=== PATIENT | female | born 1935 | race Caucasian/White ===

== ENCOUNTER 2017-01-21 17:40 | Emergency (ER) | payer OTHER ==
[~2017-01-21 17:40] MED LIST: ASPI81TA21 PO; CIPR-255 PO; HYDR500C PO; HYDR500C3 PO; IBUP-103 PO; LEVO25TA5 PO; LORA-741 PO; MULT-506 PO; [UNRECOGNIZED DRUG - CODE] PO
[2017-01-21 17:48] VITALS: TEMP 36.6; Ht 157.5 cm
--- NOTE | 2017-01-21 18:51 | EMERGENCY ROOM VISIT NOTE ---
History Report prepared by Dena: Leighann Marin Under the Supervision of: Dr. Zenobia Cabral M.D. First contact with patient: 18:04 Chief Complaint: SWELLING TO EXTREMITY Stated Complaint: SWOLLEN LEGS ANKLES FEET History of Present Illness The patient is an 81 year old female who presents to the Emergency Room with complaints of worsening edema to the bilateral legs worsening 1 weeks [employer]DING [employer]. The patient states that her legs are currently in pain. The patient's daughter states that the patient has fibromyalgia and has been complaining of knee pain and they made an appointment to see the patient's orthopedist. The daughter states that she left her mother with a sibling over the weekend and when she returned the patient had worsened edema in both legs.The patient denies any new shortness of breath, or chest pain. The patient's daughter states that the patient has history of a heart aneurysm that is monitored by her PCP and hemochromatosis. She states the patient only takes hydroxyurea and baby aspirin daily. She denies any history of CHF. She states that the patient is sensitive to cleaning products, and has been using monostat cream for vaginal dryness but states that she has been using it for months and is unsure if it is causing a prolonged reaction. 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 Review of Systems See HPI for pertinent positives & negatives. A total of 10 systems reviewed and were otherwise negative. Past Medical & Surgical Medical Problems: (1) Anemia Of Other Chronic Disease (2) Anxiety State Nos (3) Aortic Aneurysm Nos (4) Asthma, Unspecified (5) Hyperlipidemia Nec/Nos (6) Hypertension Nos (7) Insomnia, Unspecified (8) Pruritic Disorder Nos (9) Pulmonary Collapse Family History Patient reports no known family medical history. Social History Smoking Status: Never Smoker Marital Status: Housing Status: lives with significant other Occupation Status: retired Current/Historical Medications Scheduled Aspirin Enteric Coated (Ecotrin Or Generic), 81 MG PO DAILY Cholecalciferol (Vitamin D3), 5,000 UNITS PO DAILY Furosemide (Lasix), 40 MG PO QAM Hydroxyurea (Hydrea), 500 MG PO DAILY Hydroxyurea (Hydrea Cap), 1,000 MG PO DAILY Multivitamin (Multivitamin), 1 TAB PO DAILY Scheduled PRN Ibuprofen Tab (Advil), 200-600 MG PO Q8 PRN for Pain Allergies Coded Allergies: Clonidine (Verified Allergy, Intermediate, RASH, 01/21/17) Cyclobenzaprine (Verified Allergy, Intermediate, RASH, 01/21/17) Diltiazem (Verified Allergy, Intermediate, RASH, 01/21/17) Homatropine (Verified Allergy, Intermediate, SWELLING, 01/21/17) Hydrocodone (Verified Allergy, Intermediate, SWELLING, 01/21/17) Lisinopril (Verified Allergy, Intermediate, RASH, 01/21/17) Nitrofurantoin (Verified Allergy, Intermediate, RASH, 01/21/17) Penicillins (Verified Allergy, Intermediate, HIVES/RASH, 01/21/17) Pregabalin (Verified Allergy, Intermediate, tingly tongue, numb lips, ) Quinapril (Verified Allergy, Intermediate, RASH, 01/21/17) Quinolones (Verified Allergy, Intermediate, SWELLING, 01/21/17) Amitriptyline (Verified Adverse Reaction, Mild, OPPOSITE EFFECTS, 01/21/17) Uncoded Allergies: ANTICHOLINERGIC (Allergy, Intermediate, SWELLING, 10/28/09) Physical Exam Vital Signs Date Time Temp Pulse Resp B/P Pulse Ox O2 Delivery O2 Flow Rate FiO2 01/21/17 20:15 82 20 190/93 94 Room Air 01/21/17 17:48 36.6 92 18 158/70 92 Room Air Physical Exam Vital signs reviewed. General: Well-appearing female, in no significant distress. HEENT: No scleral icterus, PERRLA, neck supple. Atraumatic. Cardiovascular: Regular rate and rhythm, no extra sounds. Pulmonary: Clear to auscultation bilaterally, normal work of breathing. Abdomen: Obese, soft, nontender, nondistended, positive bowel sounds. Musculoskeletal: Non pitting peripheral edema bilaterally, no tenderness to palpation, no evidence of cellulitis Neurologic: Patient awake alert and oriented x 3, full strength in all 4 extremities. Cranial nerves 2 through 12 grossly intact. Skin: Warm, dry, no rash Medical Decision & Procedures ER Provider Diagnostic Interpretation: US results as stated below per my review and radiologist interpretation: ULTRASOUND BILATERAL LOWER EXTREMITY VENOUS CLINICAL HISTORY: Lower extremity edema. COMPARISON STUDY: No priors. TECHNIQUE: Real-time, grayscale, and color Doppler sonography of the deep veins of the right and left lower extremity was performed from the inguinal crease to the calf. Compression and augmentation were utilized. FINDINGS: There is no sonographic evidence of deep venous thrombosis identified in the right or left lower extremity. The common femoral, superficial femoral, and popliteal veins are patent and normally compressible bilaterally. The greater saphenous vein and the profunda femoris vein at the junction with the common femoral vein are clear in both legs. The visualized calf veins are patent bilaterally. IMPRESSION: There is no sonographic evidence of deep venous thrombosis identified in the right or left lower extremity. Electronically signed by: Zeeshan Light M.D. 01/21/2017 7:26 PM Dictated Date/Time: 01/21/2017 7:26 PM Laboratory Results 01/21/17 18:32 Red Blood Count 4.08, Mean Corpuscular Volume 103.9, Mean Corpuscular Hemoglobin 33.3, Mean Corpuscular Hemoglobin Concent 32.1, Mean Platelet Volume 10.7, Neutrophils (%) (Auto) 61.5, Lymphocytes (%) (Auto) 28.2, Monocytes (%) ( Auto) 8.6, Eosinophils (%) (Auto) 1.4, Basophils (%) (Auto) 0.2, Neutrophils # ( Auto) 5.28, Lymphocytes # (Auto) 2.42, Monocytes # (Auto) 0.74, Eosinophils # ( Auto) 0.12, Basophils # (Auto) 0.02 01/21/17 18:32 Test 01/21/17 18:32 01/21/17 18:36 White Blood Count 8.59 K/uL (4.8-10.8) Red Blood Count 4.08 M/uL (4.2-5.4) Hemoglobin 13.6 g/dL (12.0-16.0) Hematocrit 42.4 % (37-47) Mean Corpuscular Volume 103.9 fL (80-100) Mean Corpuscular Hemoglobin 33.3 pg (25-34) Mean Corpuscular Hemoglobin Concent 32.1 g/dl (32-36) Platelet Count 367 K/uL (130-400) Mean Platelet Volume 10.7 fL (7.4-10.4) Neutrophils (%) (Auto) 61.5 % Lymphocytes (%) (Auto) 28.2 % Monocytes (%) (Auto) 8.6 % Eosinophils (%) (Auto) 1.4 % Basophils (%) (Auto) 0.2 % Neutrophils # (Auto) 5.28 K/uL (1.4-6.5) Lymphocytes # (Auto) 2.42 K/uL (1.2-3.4) Monocytes # (Auto) 0.74 K/uL (0.11-0.59) Eosinophils # (Auto) 0.12 K/uL (0-0.5) Basophils # (Auto) 0.02 K/uL (0-0.2) RDW Standard Deviation 54.8 fL (36.4-46.3) RDW Coefficient of Variation 14.4 % (11.5-14.5) Immature Granulocyte % (Auto) 0.1 % Immature Granulocyte # (Auto) 0.01 K/uL (0.00-0.02) Anion Gap 9.0 mmol/L (3-11) Estimated GFR () 44.2 Estimated GFR (Non- 38.2 BUN/Creatinine Ratio 12.4 (10-20) Calcium Level 8.8 mg/dl (8.5-10.1) Magnesium Level 2.2 mg/dl (1.8-2.4) Total Bilirubin 0.3 mg/dl (0.2-1) Direct Bilirubin 0.1 mg/dl (0-0.2) Aspartate Amino Transf (AST/SGOT) 17 U/L (15-37) Alanine Aminotransferase (ALT/SGPT) 26 U/L (12-78) Alkaline Phosphatase 58 U/L (45-117) Total Creatine Kinase 50 U/L (26-192) Creatine Kinase MB < 0.5 ng/ml (0.5-3.6) Creatine Kinase MB Ratio (0-3.0) Total Protein 7.1 gm/dl (6.4-8.2) Albumin 3.6 gm/dl (3.4-5.0) GF-Pwk-V-Type Natriuretic Peptide 181 pg/ml (0-1800) Laboratory results per my review. Medications Administered Medications (Trade) Dose Ordered Sig/Demario Route Start Time Stop Time Status Last Admin Dose Admin Furosemide (Lasix Inj) 40 mg NOW STAT IV 01/21/17 19:40 01/21/17 19:41 DC 01/21/17 19:49 40 MG ECG Indication: other (edema) Rate (beats per minute): 82 Rhythm: normal sinus Findings: no acute ischemic change, no ectopy ED Course 1814: Past medical records reviewed. The patient was evaluated in room B12B. A complete history and physical examination was performed. 1934: I reevaluated the patient and she was resting comfortably. 1939: Ordered Lasix Inj 40 mg IV. 1955: Upon reevaluation, the patient appeared to have improvement of her symptoms. I discussed findings with the patient and her daughter. They verbalized agreement of the treatment plan. The patient was discharged home. Medical Decision The patient is a 81 year old female who presents to the ED with complaints of worsening edema. Differentials include DVT, musculoskeletal, infection, joint effusion, trauma, lymphedema, idiopathic, CHF, as well as others were entertained.. This pt was evaluated and appeared to be in no distress. IV access was obtained and lab work was drawn. US of BLE were performed and are negative for DVT. Lab work reveals no significant abnl, except for a creat of 1.3. This is slightly higher than baseline. Pt was given a dose of lasix 40 mg IV. She was d/c with a 7 day course of lasix 40 mg po. She will f/u with PCP this week and return to the ED for worsening of symptoms or any medical concerns. Impression Primary Impression: Bilateral lower extremity edema Scribe Attestation The scribe's documentation has been prepared under my direction and personally reviewed by me in its entirety. I confirm that the note above accurately reflects all work, treatment, procedures, and medical decision making performed by me. Departure Information Dispostion Home / Self-Care Prescriptions Furosemide (Lasix) 40 Mg Tab 40 MG PO QAM, #7 TAB Prov: Zenobia Cabral M.D. 01/21/17 Referrals RV. Jansen MD (PCP) Patient Instructions My [facility] Additional Instructions Diagnosis: Dependent lower extremities edema Lasix 40 mg daily in the morning. Follow a low-sodium diet. Wear compression stockings, you may remove them at night. Follow-up with your physician this week. Elevate your legs as much as possible. Return to the ER for worsening of symptoms or any medical concerns.
[2017-01-21 19:12] LABS: BASO % 0.2 %; BASO ABS # 0.02 K/uL (0-0.2); COMPLETE YES; EOS % 1.4 %; HEMATOCRIT 42.4 % (37-47); IG% 0.1 %; LYMPH % 28.2 %; LYMPH ABS # 2.42 K/uL (1.2-3.4); MEAN CELL VOLUME 103.9 fL (80-100); MEAN CORPUSCULAR HEMOGLOBIN 33.3 pg (25-34); MEAN CORPUSCULAR HGB CONC 32.1 g/dl (32-36); MEAN PLATELET VOLUME 10.7 fL (7.4-10.4); MONO % 8.6 %; NEUT % 61.5 %; PLATELET COUNT 367 K/uL (130-400); RED BLOOD COUNT 4.08 M/uL (4.2-5.4); WHITE BLOOD COUNT 8.59 K/uL (4.8-10.8)
[2017-01-21 19:24] LABS: ALT/SGPT 26 U/L (12-78); AST/SGOT 17 U/L (15-37); BLOOD UREA NITROGEN 16 mg/dl (7-18); BUN/CREATININE RATIO 12.4 (10-20); CALCIUM 8.8 mg/dl (8.5-10.1); CARBON DIOXIDE 28 mmol/L (21-32); CHLORIDE 106 mmol/L (98-107); GLUCOSE 95 mg/dl (70-99); MAGNESIUM 2.2 mg/dl (1.8-2.4); SODIUM 143 mmol/L (136-145)
--- NOTE | 2017-01-21 19:28 | DIAGNOSTIC IMAGING REPORT ---
ULTRASOUND BILATERAL LOWER EXTREMITY VENOUS CLINICAL HISTORY: Lower extremity edema. COMPARISON STUDY: No priors. TECHNIQUE: Real-time, grayscale, and color Doppler sonography of the deep veins of the right and left lower extremity was performed from the inguinal crease to the calf. Compression and augmentation were utilized. FINDINGS: There is no sonographic evidence of deep venous thrombosis identified in the right or left lower extremity. The common femoral, superficial femoral, and popliteal veins are patent and normally compressible bilaterally. The greater saphenous vein and the profunda femoris vein at the junction with the common femoral vein are clear in both legs. The visualized calf veins are patent bilaterally. IMPRESSION: There is no sonographic evidence of deep venous thrombosis identified in the right or left lower extremity. Electronically signed by: Zeeshan Light M.D. 01/21/2017 7:26 PM Dictated Date/Time: 01/21/2017 7:26 PM
[2017-01-21 19:29] LABS: ALKALINE PHOSPHATASE 58 U/L (45-117)
[2017-01-21] MEDS ORDERED: FUROSEMIDE 40 MG/4 ML VIAL IV STA (19:40)
[2017-01-21] MEDS ORDERED: CHOLCAP5 PO (20:10)
[2017-01-21] MEDS ORDERED: LSX/40 PO ×2 (20:12→20:13)
[2017-01-21 20:15] VITALS: BP 190/93; PULSE 82; O2SAT 94
== END 2017-01-21 20:30 | disposition home or self-care (01) ==
LOC: C.EDB 17:41
DX: R60.0 Localized edema (principal); M79.7 Fibromyalgia; Z79.82 Long term (current) use of aspirin; D63.8 Anemia in other chronic diseases classified elsewhere; F41.9 Anxiety disorder, unspecified; J45.909 Unspecified asthma, uncomplicated; I10 Essential (primary) hypertension; E78.5 Hyperlipidemia, unspecified; I71.9 Aortic aneurysm of unspecified site, without rupture; Z79.899 Other long term (current) drug therapy; E66.9 Obesity, unspecified

== ENCOUNTER 2017-03-07 13:51 | Emergency (ER) | payer OTHER ==
[~2017-03-07] VITALS: Ht 160 cm; Wt 96.2 kg
[~2017-03-07 13:51] MED LIST changes: +CHOLCAP5 PO; -CIPR-255 PO; -LEVO25TA5 PO; -LORA-741 PO; +LSX/40 PO; -[UNRECOGNIZED DRUG - CODE] PO
[2017-03-07 14:00] VITALS: TEMP 36.9; Ht 160 cm; Wt 96.2 kg
--- NOTE | 2017-03-07 14:19 | EMERGENCY ROOM VISIT NOTE ---
History First contact with patient: 14:04 Chief Complaint: RASH Stated Complaint: RASH/ SHINGLES History of Present Illness The patient is a 81 year old female who presents to the Emergency Room with complaints of posterior upper back pain. The patient states she has had pain for several days. She states that it seems slightly itchy. She states it is not significantly painful. She denies any pain in her chest or trouble breathing. She denies abdominal pain, nausea or vomiting. She denies any falls or injuries. Review of Systems A 10 system review of systems was completed with positives and pertinent negatives listed in the HPI. Past Medical/Surgical History Medical Problems: (1) Anemia Of Other Chronic Disease (2) Anxiety State Nos (3) Aortic Aneurysm Nos (4) Asthma, Unspecified (5) Hyperlipidemia Nec/Nos (6) Hypertension Nos (7) Insomnia, Unspecified (8) Pruritic Disorder Nos (9) Pulmonary Collapse (10) Shingles Family History Patient reports no known family medical history. Social History Smoking Status: Never Smoker Marital Status: Housing Status: lives with significant other Occupation Status: retired Current/Historical Medications Scheduled Aspirin Enteric Coated (Ecotrin Or Generic), 81 MG PO DAILY Cholecalciferol (Vitamin D3), 5,000 UNITS PO DAILY Hydroxyurea (Hydrea), 500 MG PO DAILY Hydroxyurea (Hydrea Cap), 1,000 MG PO DAILY Multivitamin (Multivitamin), 1 TAB PO DAILY Valacyclovir Hcl (Valtrex), 1,000 MG PO BID Scheduled PRN Ibuprofen Tab (Advil), 200-600 MG PO Q8 PRN for Pain Lorazepam (Ativan), 0.5 MG PO Q6H PRN for Anxiety Meclizine Hcl (Meclizine Hcl), 25 MG PO TID PRN for Dizziness or Vertigo Allergies Coded Allergies: Clonidine (Verified Allergy, Intermediate, RASH, 03/07/17) Cyclobenzaprine (Verified Allergy, Intermediate, RASH, 03/07/17) Diltiazem (Verified Allergy, Intermediate, RASH, 03/07/17) Homatropine (Verified Allergy, Intermediate, SWELLING, 03/07/17) Hydrocodone (Verified Allergy, Intermediate, SWELLING, 03/07/17) Lisinopril (Verified Allergy, Intermediate, RASH, 03/07/17) Nitrofurantoin (Verified Allergy, Intermediate, RASH, 03/07/17) Penicillins (Verified Allergy, Intermediate, HIVES/RASH, 03/07/17) Pregabalin (Verified Allergy, Intermediate, tingly tongue, numb lips, 03/07) Quinapril (Verified Allergy, Intermediate, RASH, 03/07/17) Quinolones (Verified Allergy, Intermediate, SWELLING, 03/07/17) Amitriptyline (Verified Adverse Reaction, Mild, OPPOSITE EFFECTS, 03/07/17) Uncoded Allergies: ANTICHOLINERGIC (Allergy, Intermediate, SWELLING, 10/28/09) Physical Exam Vital Signs Date Time Temp Pulse Resp B/P (MAP) Pulse Ox O2 Delivery O2 Flow Rate FiO2 03/07/17 14:00 36.9 90 18 175/89 96 Room Air Physical Exam VITALS: Vitals are noted on the nurse's note and reviewed by myself. Vital signs stable. GENERAL: This is an 81-year-old female, in no acute distress, nondiaphoretic, well-developed well-nourished. SKIN: There is a vesicular, erythematous rash to the right upper posterior back that wraps around under the right breast, does not cross the midline and follows along a dermatome. There is no tenting of the skin. Capillary reflex less than 2 seconds. HEAD: Normocephalic atraumatic. EARS: The external ears are normal in appearance. EYES: Pupils equal round and reactive to light and accommodation. Conjunctivae without injection, sclerae without icterus. Extraocular movements intact. NOSE: Patent, turbinates without inflammation or discharge. MOUTH: Mucous membranes moist. Tonsils are not enlarged. Pharynx without erythema or exudate. Uvula midline. Airway patent. Tongue does not deviate. NECK: Supple without nuchal rigidity. HEART: Regular rate and rhythm without murmurs gallops or rubs. LUNGS: Clear to auscultation bilaterally without wheezes, rales or rhonchi. No retractions or accessory muscle use. ABDOMEN: Positive bowel sounds x 4. Soft, nontender, without masses or organomegaly. MUSCULOSKELETAL: No muscle atrophy, erythema, or edema noted. Full range of motion in all extremities. No tenderness to palpation. Normal gait. Strength 5/5 throughout. NEURO: Patient was alert and oriented to person place and time. No focal neurological deficits. Medical Decision & Procedures Medications Administered Medications (Trade) Dose Ordered Sig/Demario Route Start Time Stop Time Status Last Admin Dose Admin Valacyclovir HCl (Valtrex Tab) 1,000 mg NOW ONCE PO 03/07/17 14:45 03/07/17 14:46 DC 03/07/17 15:20 1,000 MG ED Course The patient was seen and examined. Previous visits were reviewed. The patient appears to have shingles. The rash is in the exact distribution of the patient' s pain. She has not had any chest pain or trouble breathing. She has not had any fevers. I reviewed laboratory studies from earlier last month. She will be given renal dosing of Valtrex, 1 g twice a day 7 days. She declined any pain medication. She should contact her family doctor to schedule a follow-up appointment for further evaluation and management. She should return to the ER with any worsening symptoms. The patient was also seen and examined by Dr. Almaguer who agrees with the assessment and treatment plan. Medical Decision The differential diagnosis includes cellulitis, candidiasis, shingles, among others Impression Primary Impression: Shingles Departure Information Dispostion Home / Self-Care Condition GOOD Prescriptions Valacyclovir Hcl (VALTREX) 1 Gm Tab 1000 MG PO BID for s for 7 Days, #14 TAB Prov: Rosmery Ocampo PA-C 03/07/17 Referrals RV. Jansen MD (PCP) Patient Instructions ED Shingles, My [facility] Additional Instructions Valtrex every 12 hours for 7 days Follow up with your family doctor next week for a recheck Return with any worsening symptoms Problem Qualifiers Primary Impression: Shingles Herpes zoster complications: without complications Qualified Codes: B02.9 - Zoster without complications
[2017-03-07] MEDS ORDERED: LORA-741 PO (14:22)
[2017-03-07] MEDS ORDERED: BNC/40 PO (14:22)
[2017-03-07] MEDS ORDERED: MECL1TAB42 PO (14:22)
--- NOTE | 2017-03-07 14:33 | EMERGENCY ROOM VISIT NOTE ---
ED Visit Note First contact with patient: 14:04 I have seen and examined this patient with Rosmery Ocampo and generally agree with the treatment plan as discussed. Current/Historical Medications Scheduled Aspirin Enteric Coated (Ecotrin Or Generic), 81 MG PO DAILY Cholecalciferol (Vitamin D3), 5,000 UNITS PO DAILY Hydroxyurea (Hydrea), 500 MG PO DAILY Hydroxyurea (Hydrea Cap), 1,000 MG PO DAILY Multivitamin (Multivitamin), 1 TAB PO DAILY Scheduled PRN Ibuprofen Tab (Advil), 200-600 MG PO Q8 PRN for Pain Lorazepam (Ativan), 0.5 MG PO Q6H PRN for Anxiety Meclizine Hcl (Meclizine Hcl), 25 MG PO TID PRN for Dizziness or Vertigo Allergies Coded Allergies: Clonidine (Verified Allergy, Intermediate, RASH, 03/07/17) Cyclobenzaprine (Verified Allergy, Intermediate, RASH, 03/07/17) Diltiazem (Verified Allergy, Intermediate, RASH, 03/07/17) Homatropine (Verified Allergy, Intermediate, SWELLING, 03/07/17) Hydrocodone (Verified Allergy, Intermediate, SWELLING, 03/07/17) Lisinopril (Verified Allergy, Intermediate, RASH, 03/07/17) Nitrofurantoin (Verified Allergy, Intermediate, RASH, 03/07/17) Penicillins (Verified Allergy, Intermediate, HIVES/RASH, 03/07/17) Pregabalin (Verified Allergy, Intermediate, tingly tongue, numb lips, 03/07) Quinapril (Verified Allergy, Intermediate, RASH, 03/07/17) Quinolones (Verified Allergy, Intermediate, SWELLING, 03/07/17) Amitriptyline (Verified Adverse Reaction, Mild, OPPOSITE EFFECTS, 03/07/17) Uncoded Allergies: ANTICHOLINERGIC (Allergy, Intermediate, SWELLING, 10/28/09) Vital Signs Date Time Temp Pulse Resp B/P (MAP) Pulse Ox O2 Delivery O2 Flow Rate FiO2 03/07/17 14:00 36.9 90 18 175/89 96 Room Air Departure Information Referrals RV. Jansen MD (PCP) Patient Instructions My [facility]
[2017-03-07] MEDS ORDERED: VALA1TAB2 PO (14:40)
[2017-03-07 15:50] VITALS: BP 171/79; PULSE 91; O2SAT 95
== END 2017-03-07 15:52 | disposition home or self-care (01) ==
LOC: EDBD 13:51 → C.EDC 13:51
DX: B02.9 Zoster without complications (principal); E78.5 Hyperlipidemia, unspecified; I10 Essential (primary) hypertension

== ENCOUNTER 2017-11-18 23:51 | Observation (INO) | payer OTHER ==
[~2017-11-18] VITALS: Ht 152.4 cm; Wt 96.9 kg
[~2017-11-18 23:51] MED LIST changes: +LORA-741 PO; -LSX/40 PO; +MECL1TAB42 PO
[2017-11-19] VITALS (8 sets, daily range): BP systolic 98–232; BP diastolic 53–91; PULSE 66–84; TEMP 36.5–37.2; O2SAT 94; Ht 152.4 cm; Wt 96.9 kg
[2017-11-19] MEDS ORDERED: SODIUM CHLORIDE 0.9% 1000ML 1,000 ML IV STA (00:29)
[2017-11-19] MEDS ORDERED: MoRPHine SULFATE 4 MG/ML 1 ML CARP\\VIAL IV STA (00:41)
[2017-11-19] MEDS ORDERED: ONDANSETRON INJ 2 MG/ML 2 ML VIAL IV STA ×2 (00:41→02:37)
[2017-11-19] MEDS ORDERED: SODIUM CHLORIDE 0.9% 500ML 500 ML IV STA (00:41)
[2017-11-19] MEDS ORDERED: FENTANYL CITRATE INJ 50 MCG/1 ML 2 ML VIAL IV STA ×3 (00:44→02:37)
[2017-11-19 00:48] LABS: BASO % 0.1 %; BASO ABS # 0.01 K/uL (0-0.2); EOS % 0.4 %; EOS ABS # 0.05 K/uL (0-0.5); HEMATOCRIT 41.5 % (37-47); HEMOGLOBIN 14.2 g/dL (12.0-16.0); IG# 0.03 K/uL (0.00-0.02); LYMPH % 20.4 %; LYMPH ABS # 2.44 K/uL (1.2-3.4); MEAN CELL VOLUME 104.3 fL (80-100); MEAN CORPUSCULAR HEMOGLOBIN 35.7 pg (25-34); MEAN CORPUSCULAR HGB CONC 34.2 g/dl (32-36); MEAN PLATELET VOLUME 10.9 fL (7.4-10.4); MONO % 7.3 %; MONO ABS # 0.87 K/uL (0.11-0.59); NEUT % 71.5 %; NEUT ABS # 8.58 K/uL (1.4-6.5); PLATELET COUNT 394 K/uL (130-400); RED CELL DISTRIBUTION WIDTH CV 13.9 % (11.5-14.5); RED CELL DISTRIBUTION WIDTH SD 52.5 fL (36.4-46.3); WHITE BLOOD COUNT 11.98 K/uL (4.8-10.8)
[2017-11-19 01:23] LABS: ALBUMIN 3.5 gm/dl (3.4-5.0); ALKALINE PHOSPHATASE 61 U/L (45-117); ALT/SGPT 23 U/L (12-78); BLOOD UREA NITROGEN 21 mg/dl (7-18); CARBON DIOXIDE 25 mmol/L (21-32); GLUCOSE 138 mg/dl (70-99); LIPASE 142 U/L (73-393); SODIUM 141 mmol/L (136-145); TOTAL PROTEIN 7.5 gm/dl (6.4-8.2)
[2017-11-19] MEDS ORDERED: GABA100C13 PO (01:26)
--- NOTE | 2017-11-19 01:26 | EMERGENCY ROOM VISIT NOTE ---
History Report prepared by Dena: Raul Roblero Under the Supervision of: Dr. Rodolfo Wheatley M.D. First contact with patient: 00:29 Chief Complaint: BACK PAIN Stated Complaint: LWR RT BACK PAIN,RT ABD PAIN,VOMITING,URINARY PAIN History of Present Illness The patient is an 82 year old female who presents to the Emergency Room with complaints of constant lower abdominal pain beginning 2 hours ago. Per daughter , the patient did not have any symptoms this morning. The patient also complains of dry heaving, nausea, lower back pain, and having to urinate. She states that although she feels as though she has to urinate, she is unable to. Per daughter, the patient is not one to typically have these symptoms, prompting her to take the patient to the emergency department tonight. She notes that she has a history of diverticulitis, cholecystectomy, appendectomy, and has had an ectopic . She rates her pain as an 8/10. Pt denies LOC, headache, fevers, chills, diaphoresis, visual changes, neck pain, chest pain, breathing difficulties, melena, hematochezia, numbness, weakness, lymphadenopathy, rash, or other complaints. Source of History: patient Onset: 2 hours ago Position: abdomen Symptom Intensity: 8/10 Timing: constant Associated Symptoms: + nausea, + back pain Note: The patient also complains of dry heaving, and having the feeling that she has to urinate despite not being able. Review of Systems See HPI for pertinent positives and negatives. A total of ten systems were reviewed and were otherwise negative. Past Medical & Surgical Medical Problems: (1) Anemia Of Other Chronic Disease (2) Anxiety State Nos (3) Aortic Aneurysm Nos (4) Asthma, Unspecified (5) Diverticulitis (6) Ectopic (7) Hyperlipidemia Nec/Nos (8) Hypertension Nos (9) Insomnia, Unspecified (10) Pruritic Disorder Nos (11) Pulmonary Collapse (12) Shingles Surgical Problems: (1) S/P appendectomy (2) S/P cholecystectomy Family History Patient reports no known family medical history. Social History Smoking Status: Never Smoker Marital Status: Housing Status: lives with significant other Occupation Status: retired Current/Historical Medications Scheduled Gabapentin (Neurontin), 100 MG PO BID Hydroxyurea (Hydrea), 500 MG PO DAILY Hydroxyurea (Hydrea Cap), 1,000 MG PO DAILY Scheduled PRN Ibuprofen Tab (Advil), 200-600 MG PO Q8 PRN for Pain Allergies Coded Allergies: Clonidine (Verified Allergy, Intermediate, RASH, 11/19/17) Cyclobenzaprine (Verified Allergy, Intermediate, RASH, 11/19/17) Diltiazem (Verified Allergy, Intermediate, RASH, 11/19/17) Homatropine (Verified Allergy, Intermediate, SWELLING, 11/19/17) Hydrocodone (Verified Allergy, Intermediate, SWELLING, 11/19/17) Lisinopril (Verified Allergy, Intermediate, RASH, 11/19/17) Nitrofurantoin (Verified Allergy, Intermediate, RASH, 11/19/17) Penicillins (Verified Allergy, Intermediate, HIVES/RASH, 11/19/17) Pregabalin (Verified Allergy, Intermediate, tingly tongue, numb lips, 11/19) Quinapril (Verified Allergy, Intermediate, RASH, 11/19/17) Quinolones (Verified Allergy, Intermediate, SWELLING, 11/19/17) Levofloxacin (Verified Allergy, Unknown, GMG LIST, 11/19/17) Sulfamethoxazole w/Trimethoprim (Verified Allergy, Unknown, GMG LIST, 11/19) Amitriptyline (Verified Adverse Reaction, Mild, OPPOSITE EFFECTS, 11/19/17) Uncoded Allergies: ANTICHOLINERGIC (Allergy, Intermediate, SWELLING, 10/28/09) Physical Exam Vital Signs Date Time Temp Pulse Resp B/P (MAP) Pulse Ox O2 Delivery O2 Flow Rate FiO2 11/19/17 03:05 99 Nasal Cannula 4.0 11/19/17 03:05 95 Nasal Cannula 4.0 11/19/17 03:02 75 18 210/86 86 Room Air 11/19/17 02:37 72 20 212/76 95 Room Air 11/19/17 01:14 83 20 213/85 97 Room Air 11/19/17 00:30 70 11/18/17 23:59 36.3 73 16 223/92 96 Room Air Physical Exam GENERAL: Awake, alert, uncomfortable appearing, in no distress HENT: Normocephalic, atraumatic. Oropharynx unremarkable. EYES: Normal conjunctiva. Sclera non-icteric. NECK: Supple. No nuchal rigidity. FROM. No masses. RESPIRATORY: Clear to auscultation. No wheezes. CARDIAC: Normal rate. Normal rhythm. No murmurs. No rubs. Extremities warm and well perfused. Pulses equal. No JVD. GI: Soft, non-distended. No rebound or guarding. No masses. Right lower and right flank tenderness, suprapubic RLQ tenderness. RECTAL: Deferred. MUSCULOSKELETAL: Atraumatic. Chest examination reveals no tenderness. The back is symmetrical on inspection without obvious abnormality. There is no CVA tenderness to palpation. No joint edema. LOWER EXTREMITIES: Calves are equal size bilaterally and non-tender. No edema. No discoloration. NEURO: Normal sensorium. No sensory or motor deficits noted. SKIN: No rash or jaundice noted. Medical Decision & Procedures ER Provider Diagnostic Interpretation: Radiology results as stated below per my review and radiologist interpretation: CT ABDOMEN & PELVIS Without Contrast: Tiny 2mm stone in the lumen of the bladder near the right UVJ, causing mild right hydroureter and hydronephrosis. Perinephric and periureteral fat stranding or fluid may be related to the recent obstructive process. Ascending urinary tract infection cannot be excluded. Recommend correlation with urinalysis. Cardiomegaly. Status post cholecystectomy. No significant biliary dilation. Moderate diverticulitis of the sigmoid and descending colon without acute diverticulitis. No bowel wall thickening or bowel obstruction. Appendix is not identified. Moderate atherosclerosis. Multilevel degenerative changes of the spine. Radiologist: Ashley Peace M.D. Laboratory Results 11/19/17 00:30 Red Blood Count 3.98, Mean Corpuscular Volume 104.3, Mean Corpuscular Hemoglobin 35.7, Mean Corpuscular Hemoglobin Concent 34.2, Mean Platelet Volume 10.9, Neutrophils (%) (Auto) 71.5, Lymphocytes (%) (Auto) 20.4, Monocytes (%) ( Auto) 7.3, Eosinophils (%) (Auto) 0.4, Basophils (%) (Auto) 0.1, Neutrophils # ( Auto) 8.58, Lymphocytes # (Auto) 2.44, Monocytes # (Auto) 0.87, Eosinophils # ( Auto) 0.05, Basophils # (Auto) 0.01 11/19/17 00:30 11/19/17 01:43 Test 11/19/17 00:30 11/19/17 01:43 11/19/17 01:50 White Blood Count 11.98 K/uL (4.8-10.8) Red Blood Count 3.98 M/uL (4.2-5.4) Hemoglobin 14.2 g/dL (12.0-16.0) Hematocrit 41.5 % (37-47) Mean Corpuscular Volume 104.3 fL (80-100) Mean Corpuscular Hemoglobin 35.7 pg (25-34) Mean Corpuscular Hemoglobin Concent 34.2 g/dl (32-36) Platelet Count 394 K/uL (130-400) Mean Platelet Volume 10.9 fL (7.4-10.4) Neutrophils (%) (Auto) 71.5 % Lymphocytes (%) (Auto) 20.4 % Monocytes (%) (Auto) 7.3 % Eosinophils (%) (Auto) 0.4 % Basophils (%) (Auto) 0.1 % Neutrophils # (Auto) 8.58 K/uL (1.4-6.5) Lymphocytes # (Auto) 2.44 K/uL (1.2-3.4) Monocytes # (Auto) 0.87 K/uL (0.11-0.59) Eosinophils # (Auto) 0.05 K/uL (0-0.5) Basophils # (Auto) 0.01 K/uL (0-0.2) RDW Standard Deviation 52.5 fL (36.4-46.3) RDW Coefficient of Variation 13.9 % (11.5-14.5) Immature Granulocyte % (Auto) 0.3 % Immature Granulocyte # (Auto) 0.03 K/uL (0.00-0.02) Anion Gap 9.0 mmol/L (3-11) Estimated GFR () 49.4 Estimated GFR (Non- 42.6 BUN/Creatinine Ratio 17.8 (10-20) Calcium Level 9.0 mg/dl (8.5-10.1) Direct Bilirubin mg/dl (0-0.2) Alanine Aminotransferase (ALT/SGPT) 23 U/L (12-78) Alkaline Phosphatase 61 U/L (45-117) Total Protein 7.5 gm/dl (6.4-8.2) Albumin 3.5 gm/dl (3.4-5.0) Lipase 142 U/L (73-393) Total Bilirubin 0.3 mg/dl (0.2-1) Aspartate Amino Transf (AST/SGOT) 15 U/L (15-37) Urine Color YELLOW Urine Appearance CLOUDY (CLEAR) Urine pH 5.5 (4.5-7.5) Urine Specific [place] 1.022 (1.000-1.030) Urine Protein NEG (NEG) Urine Glucose (UA) NEG (NEG) Urine Ketones TRACE (NEG) Urine Occult Blood NEG (NEG) Urine Nitrite NEG (NEG) Urine Bilirubin NEG (NEG) Urine Urobilinogen NEG (NEG) Urine Leukocyte Esterase TRACE (NEG) Urine WBC (Auto) 10-30 /hpf (0-5) Urine RBC (Auto) 0-4 /hpf (0-4) Urine Hyaline Casts (Auto) 5-10 /lpf (0-5) Urine Epithelial Cells (Auto) >30 /lpf (0-5) Urine Bacteria (Auto) 2+ (NEG) Urine Renal Epithelial Cells /lpf (0-5) Urine Mucus PRESENT (NONE PRSENT) Laboratory results reviewed by me Medications Administered Medications (Trade) Dose Ordered Sig/Demario Route Start Time Stop Time Status Last Admin Dose Admin Sodium Chloride 1,000 ml @ 125 mls/hr Q8H STAT IV 11/19/17 00:29 11/19/17 08:28 11/19/17 01:56 125 MLS/HR Sodium Chloride 500 ml @ 999 mls/hr Q31M STAT IV 11/19/17 00:41 11/19/17 01:11 DC 11/19/17 00:56 999 MLS/HR Ondansetron HCl (Zofran Inj) 4 mg NOW STAT IV 11/19/17 00:41 11/19/17 00:43 DC 11/19/17 00:56 4 MG Fentanyl Citrate (Fentanyl Inj) 25 mcg NOW STAT IV 11/19/17 00:44 11/19/17 00:45 DC 11/19/17 00:56 25 MCG Fentanyl Citrate (Fentanyl Inj) 50 mcg NOW STAT IV 11/19/17 01:14 11/19/17 01:15 DC 11/19/17 01:56 50 MCG Ceftriaxone Sodium (Rocephin Inj) 1 gm NOW STAT IV 11/19/17 02:34 11/19/17 02:35 DC 11/19/17 03:01 1 GM Fentanyl Citrate (Fentanyl Inj) 50 mcg NOW STAT IV 11/19/17 02:37 11/19/17 02:39 DC 11/19/17 03:02 50 MCG Ondansetron HCl (Zofran Inj) 4 mg NOW STAT IV 11/19/17 02:37 11/19/17 02:39 DC 11/19/17 03:01 4 MG ED Course 0034: The patient was evaluated in room B11. A complete history and physical exam was performed. 0041: Morphine Sulfate 2mg IV, Zofran Inj 4mg IV, Sodium Chloride 500 ml @ 999 mls/hr IV 0044: Fentanyl Inj 25 mcg IV 0114: I reevaluated and updated the patient. She is still in pain and would like more pain medication. Fentanyl Inj 50 mcg IV. 0145: I rechecked the patient. She is still uncomfortable. She is having her repeat blood work done. 0250: Upon reexamination, the patient was stable. I discussed the test results and treatment plan with her. Discussed the patient's case with []. The patient will be evaluated for further management. Medical Decision Triage Nursing notes reviewed. The patient's presentation and history were concerning for abdominal and flank pain. Etiologies such as renal colic, appendicitis, diverticulitis, mesenteric ischemia, aortic pathology, infections, inflammatory bowel disease, PUD, biliary pathology, UTI, as well as others were entertained. The patient was evaluated. She was uncomfortable. She was hydrated. She was given Zofran. She was given fentanyl 2. CT imaging was performed. Her blood work reveals a mild leukocytosis. The patient's urinalysis is concerning for infection. Chemistry was unremarkable. CT scan revealed a possible UTI versus recently passed calculus was sitting either in the bladder or at the vesicoureteral junction. The patient was reassessed. She was still having pain and nausea. She was given additional Zofran and fentanyl. She was treated with IV Rocephin. Given her persistent symptoms and generalized ill feelings from this process she is not in any condition to go home. I discussed this with the patient and the family and they were in agreement. Consultation was made with internal medicine for further management. Medication Reconcilliation Current Medication List: was personally reviewed by me Blood Pressure Screening Patient's blood pressure: Elevated blood pressure Elevated blood pressure will be monitored by hospitalist. Consults Time Called: [phone] Consulting Physician: [] - Hospitalist, [facility] Returned Call: [phone] Discussed the patient's case. The patient will be evaluated for further treatment and disposition. Impression Primary Impression: Kidney stone Additional Impression: UTI (urinary tract infection) Scribe Attestation The scribe's documentation has been prepared under my direction and personally reviewed by me in its entirety. I confirm that the note above accurately reflects all work, treatment, procedures, and medical decision making performed by me. Departure Information Dispostion Being Evaluated By Hospitalist Referrals RV. Jansen MD (PCP) Patient Instructions My [facility] Problem Qualifiers
[2017-11-19 01:40] LABS: CREATININE 1.18 mg/dl (0.60-1.20)
[2017-11-19 02:07] LABS: POTASSIUM 3.9 mmol/L (3.5-5.1)
[2017-11-19] MEDS ORDERED: CEFTRIAXONE SOD INJ 1 GM ADDVIAL IV STA (02:34)
[2017-11-19] MEDS ORDERED: HYDROmorphone INJ 0.5 MG/0.5 ML SYR IV PRN (03:00)
[2017-11-19] MEDS ORDERED: TAMSULOSIN HCL 0.4 MG CAP PO ONE (03:00)
--- NOTE | 2017-11-19 03:40 | History and Physical ---
History & Physical Date & Time of Service: Nov 19, 2017 at 02:56 Chief Complaint: Lwr Rt Back Pain,Rt Abd Pain,Vomiting,Urinary Pain Primary Care Physician: RV. Jansen MD History of Present Illness Source: patient, family 82 y/o F Hx anxiety, diverticulitis, HTN, polycythemia vera, dementia. Pt presents with lower abdominal pain, nausea, vomiting and dysuria. Initial labs are consistent with dehydration. A UA is equivocal. A CT abdomen was obtained revealing a 2mm obstructing calculus at the R UVJ. The pt's BP is markedly elevated at the time of assessment. She is unable to provide a comprehensive history due to dementia and having received a high dose of narcotics in the ER. She is accompanied by her daughter who provided the preceding information. Past Medical/Surgical History 1) Polycythemia Vera 2) HTN 3) Diverticulitis 4) Anxiety disorder 5) Dementia 6) Cardiac aneurysm Family History Patient reports no known family medical history. 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 - daughter participates in care - she lives with an elderly Smoking Status: Never Smoker Marital Status: Housing status: lives with family Occupational Status: retired Multi-Drug Resistant Organisms History of MDRO: No Allergies Coded Allergies: Clonidine (Verified Allergy, Intermediate, RASH, 11/19/17) Cyclobenzaprine (Verified Allergy, Intermediate, RASH, 11/19/17) Diltiazem (Verified Allergy, Intermediate, RASH, 11/19/17) Homatropine (Verified Allergy, Intermediate, SWELLING, 11/19/17) Hydrocodone (Verified Allergy, Intermediate, SWELLING, 11/19/17) Lisinopril (Verified Allergy, Intermediate, RASH, 11/19/17) Nitrofurantoin (Verified Allergy, Intermediate, RASH, 11/19/17) Penicillins (Verified Allergy, Intermediate, HIVES/RASH, 11/19/17) Pregabalin (Verified Allergy, Intermediate, tingly tongue, numb lips, 11/19) Quinapril (Verified Allergy, Intermediate, RASH, 11/19/17) Quinolones (Verified Allergy, Intermediate, SWELLING, 11/19/17) Levofloxacin (Verified Allergy, Unknown, GMG LIST, 11/19/17) Sulfamethoxazole w/Trimethoprim (Verified Allergy, Unknown, GMG LIST, 11/19) Amitriptyline (Verified Adverse Reaction, Mild, OPPOSITE EFFECTS, 11/19/17) Uncoded Allergies: ANTICHOLINERGIC (Allergy, Intermediate, SWELLING, 10/28/09) Home Medications Scheduled Gabapentin (Neurontin), 100 MG PO BID Hydroxyurea (Hydrea), 500 MG PO DAILY Hydroxyurea (Hydrea Cap), 1,000 MG PO DAILY Scheduled PRN Ibuprofen Tab (Advil), 200-600 MG PO Q8 PRN for Pain Review of Systems Cannot obtain from pt - brought in by daughter for nausea, vomiting, abd pain Physical Exam Vital Signs Date Time Temp Pulse Resp B/P (MAP) Pulse Ox O2 Delivery O2 Flow Rate FiO2 11/19/17 02:37 72 20 212/76 95 Room Air 11/19/17 01:14 83 20 213/85 97 Room Air 11/19/17 00:30 70 11/18/17 23:59 36.3 73 16 223/92 96 Room Air General Appearance: WD/WN, no apparent distress Head: normocephalic Eyes: normal inspection, EOMI ENT: normal ENT inspection, pharynx normal Neck: supple, no JVD Respiratory/Chest: chest non-tender, lungs clear, normal breath sounds Cardiovascular: regular rate, rhythm, no edema, no gallop Abdomen/GI: normal bowel sounds, non tender, soft Back: normal inspection, no CVA tenderness, no muscle spasm, normal range of motion Extremities/Musculoskelatal: normal inspection, no calf tenderness, normal capillary refill 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, no motor/sensory deficits, alert Skin: normal color Diagnostics Laboratory Results Results Past 24 Hours Test 11/19/17 00:30 11/19/17 01:43 11/19/17 01:50 Range/Units White Blood Count 11.98 4.8-10.8 K/uL Red Blood Count 3.98 4.2-5.4 M/uL Hemoglobin 14.2 12.0-16.0 g/dL Hematocrit 41.5 37-47 % Mean Corpuscular Volume 104.3 80-100 fL Mean Corpuscular Hemoglobin 35.7 25-34 pg Mean Corpuscular Hemoglobin Concent 34.2 32-36 g/dl Platelet Count 394 130-400 K/uL Mean Platelet Volume 10.9 7.4-10.4 fL Neutrophils (%) (Auto) 71.5 % Lymphocytes (%) (Auto) 20.4 % Monocytes (%) (Auto) 7.3 % Eosinophils (%) (Auto) 0.4 % Basophils (%) (Auto) 0.1 % Neutrophils # (Auto) 8.58 1.4-6.5 K/uL Lymphocytes # (Auto) 2.44 1.2-3.4 K/uL Monocytes # (Auto) 0.87 0.11-0.59 K/uL Eosinophils # (Auto) 0.05 0-0.5 K/uL Basophils # (Auto) 0.01 0-0.2 K/uL RDW Standard Deviation 52.5 36.4-46.3 fL RDW Coefficient of Variation 13.9 11.5-14.5 % Immature Granulocyte % (Auto) 0.3 % Immature Granulocyte # (Auto) 0.03 0.00-0.02 K/uL Sodium Level 141 136-145 mmol/L Potassium Level 3.9 3.5-5.1 mmol/L Chloride Level 107 98-107 mmol/L Carbon Dioxide Level 25 21-32 mmol/L Anion Gap 9.0 3-11 mmol/L Blood Urea Nitrogen 21 7-18 mg/dl Creatinine 1.18 0.60-1.20 mg/dl Estimated GFR () 49.4 Estimated GFR (Non- 42.6 BUN/Creatinine Ratio 17.8 10-20 Random Glucose 138 70-99 mg/dl Calcium Level 9.0 8.5-10.1 mg/dl Total Bilirubin 0.3 0.3 0.2-1 mg/dl Direct Bilirubin 0-0.2 mg/dl Aspartate Amino Transf (AST/SGOT) 15 15-37 U/L Alanine Aminotransferase (ALT/SGPT) 23 12-78 U/L Alkaline Phosphatase 61 45-117 U/L Total Protein 7.5 6.4-8.2 gm/dl Albumin 3.5 3.4-5.0 gm/dl Lipase 142 73-393 U/L Urine Color YELLOW Urine Appearance CLOUDY CLEAR Urine pH 5.5 4.5-7.5 Urine Specific [place] 1.022 1.000-1.030 Urine Protein NEG NEG Urine Glucose (UA) NEG NEG Urine Ketones TRACE NEG Urine Occult Blood NEG NEG Urine Nitrite NEG NEG Urine Bilirubin NEG NEG Urine Urobilinogen NEG NEG Urine Leukocyte Esterase TRACE NEG Urine WBC (Auto) 10-30 0-5 /hpf Urine RBC (Auto) 0-4 0-4 /hpf Urine Hyaline Casts (Auto) 5-10 0-5 /lpf Urine Epithelial Cells (Auto) >30 0-5 /lpf Urine Bacteria (Auto) 2+ NEG Urine Renal Epithelial Cells 0-5 /lpf Urine Mucus PRESENT NONE PRSENT Microbiology Results 11/19/17 Urine Culture, Received Pending Diagnostic Radiology CT abdomen: 2mm stone at R UVJ - mild hydronephrosis and hydroureter, perinephric stranding Impression Assessment and Plan 82 y/o F Hx anxiety, diverticulitis, HTN, polycythemia vera, dementia. Pt presents with lower abdominal pain, nausea, vomiting and dysuria. Initial labs are consistent with dehydration. A UA is equivocal. A CT abdomen was obtained revealing a 2mm obstructing calculus at the R UVJ. The pt's BP is markedly elevated at the time of assessment. She is unable to provide a comprehensive history due to dementia and having received a high dose of narcotics in the ER. 1) Obstructing calculus - nausea, vomiting and abdominal pain. Pt will receive IVF, analgesics, Flomax. We will sieve her urine overnight. The stone is at the UVJ and measures 2mm so that we would expect it would pass spontaneously. We may need to consult urology if it does not. She is receiving Ceftriaxone for a presumed UTI. 2) HTN - per her daughter, she was previously taking Benicar which was DCd by her primary MD. Her elevated pressure does not appear to be caused by pain as her pain had resolved and her SBP remained above 200. We will provide a dose of Labetalol and then Hydralazine with a goal SBP of approximately 160-170. She may need to restart an outpatient antihypertensive. 3) Polycythemia Vera - cont Hydroxyuria. 4) The pt desaturated after receiving Fentanyl and is assigned to telemetry Full code - SCDs Total time for this admit including review of labs, meds, imaging, records - discussion with pt, daughter, ER attending - 36 min Level of Care Med/Surg Resuscitation Status FULL RESUSCITATION VTE Prophylaxis Given or contraindicated: SCD's
[2017-11-19] MEDS ORDERED: HydrALAZINE HCL 20 MG/ML VIAL IV. PRN (03:45)
[2017-11-19] MEDS ORDERED: ONDANSETRON INJ 2 MG/ML 2 ML VIAL IV PRN (03:45)
[2017-11-19] MEDS ORDERED: ACETAMINOPHEN 325 MG TAB PO PRN (03:45)
[2017-11-19] MEDS ORDERED: MAGNESIUM HYDROXIDE SUSP 30 ML UDC PO PRN (03:45)
[2017-11-19] MEDS ORDERED: POLYETHYLENE (MIRALAX) 17 GM PACK PO PRN (03:45)
[2017-11-19] MEDS ORDERED: SODIUM CHLORIDE 0.9% 1000ML 1,000 ML IV SCH (03:45)
[2017-11-19] MEDS ORDERED: TAMSULOSIN HCL 0.4 MG CAP ONE (04:10)
[2017-11-19] MEDS ORDERED: LABETALOL HCL IV 5 MG/ML 20ML IV ONE (05:00)
--- NOTE | 2017-11-19 06:43 | DIAGNOSTIC IMAGING REPORT ---
CT SCAN OF THE ABDOMEN AND PELVIS WITHOUT CONTRAST CLINICAL HISTORY: Right back and abdominal pain COMPARISON STUDY: 07/13/2016 TECHNIQUE: CT scan of the abdomen and pelvis was performed from the lung bases to the proximal femurs. Images are reviewed in the axial, sagittal, and coronal planes. IV contrast was not administered for this examination. A dose lowering technique was utilized adhering to the principles of ALARA. CT DOSE: 1926.42 mGy.cm FINDINGS: Lower chest: There are mild basilar atelectatic changes. The heart is enlarged. Liver: The unenhanced liver is normal in size, contour, and attenuation. There is no intrahepatic biliary ductal dilatation. Gallbladder: Surgically absent Spleen: Normal in size and attenuation. Pancreas: Unremarkable. Adrenal glands: Unremarkable. Kidneys: There is right-sided hydronephrosis and right-sided perinephric stranding. There is right periureteral edema. There is a 2 mm calculus at the level of the right ureterovesical junction. Bowel: There are no transition zones indicate bowel obstruction. There is colonic diverticulosis. There are no acute peridiverticular inflammatory changes. Peritoneum: There is no intraperitoneal free air or abdominal ascites. Vasculature: The abdominal aorta is normal in course and caliber. Adenopathy: None. Pelvic viscera: The bladder, and pelvic viscera are unremarkable. Skeletal structures: No destructive osseous lesions are seen. IMPRESSION: 2 mm calculus at the level the right ureterovesical junction with secondary right-sided hydroureteronephrosis. Electronically signed by: Elgin Mary M.D. 11/19/2017 6:42 AM Dictated Date/Time: 11/19/2017 6:39 AM
[2017-11-19] MEDS: GABAPENTIN 100 MG CAP PO SCH ×2 (08:47→19:46)
[2017-11-19] MEDS: TAMSULOSIN HCL 0.4 MG CAP PO SCH (08:48)
[2017-11-19] MEDS: HYDROXYUREA 500 MG CAP PO SCH (08:48)
--- NOTE | 2017-11-19 09:47 | Urology Consultation ---
History General Date of Service: Nov 19, 2017. Chief Complaint: kidney stone Primary Care Physician: RV. Jansen MD Pt seen a urologist before?: Yes (Dr. Mckenna) If yes, why?: LUTS, POP History of Present Illness 82 yo female with baseline dementia admitted for abdominal pain. CT scan showing a 2mm right UVJ stone. The pt reports severe abdominal pain last evening, but states her pain has resolved this morning. Denies dysuria, hematuria, or n/v. She is aware that she is in the hospital and pain from a kidney stone brought her here, but is also noted to be a poor historian with confusion stating she lives with her parents and sister. The pt has seen [facility] in the past for lower urinary tract symptoms and pessary placement. Last seen in December 2014. She does not recall a previous hx of stones. She is currently afebrile. White count on admission was 11.98. UC&S pending. Cr noted to be 1.18 on admission. Imaging Imaging: CT Laboratory Last 24 Hours Test 11/19/17 00:30 11/19/17 01:43 11/19/17 01:50 White Blood Count 11.98 K/uL Red Blood Count 3.98 M/uL Hemoglobin 14.2 g/dL Hematocrit 41.5 % Mean Corpuscular Volume 104.3 fL Mean Corpuscular Hemoglobin 35.7 pg Mean Corpuscular Hemoglobin Concent 34.2 g/dl Platelet Count 394 K/uL Mean Platelet Volume 10.9 fL Neutrophils (%) (Auto) 71.5 % Lymphocytes (%) (Auto) 20.4 % Monocytes (%) (Auto) 7.3 % Eosinophils (%) (Auto) 0.4 % Basophils (%) (Auto) 0.1 % Neutrophils # (Auto) 8.58 K/uL Lymphocytes # (Auto) 2.44 K/uL Monocytes # (Auto) 0.87 K/uL Eosinophils # (Auto) 0.05 K/uL Basophils # (Auto) 0.01 K/uL RDW Standard Deviation 52.5 fL RDW Coefficient of Variation 13.9 % Immature Granulocyte % (Auto) 0.3 % Immature Granulocyte # (Auto) 0.03 K/uL Sodium Level 141 mmol/L Potassium Level mmol/L 3.9 mmol/L Chloride Level 107 mmol/L Carbon Dioxide Level 25 mmol/L Anion Gap 9.0 mmol/L Blood Urea Nitrogen 21 mg/dl Creatinine 1.18 mg/dl Estimated GFR () 49.4 Estimated GFR (Non- 42.6 BUN/Creatinine Ratio 17.8 Random Glucose 138 mg/dl Calcium Level 9.0 mg/dl Total Bilirubin 0.3 mg/dl 0.3 mg/dl Direct Bilirubin mg/dl Aspartate Amino Transf (AST/SGOT) U/L 15 U/L Alanine Aminotransferase (ALT/SGPT) 23 U/L Alkaline Phosphatase 61 U/L Total Protein 7.5 gm/dl Albumin 3.5 gm/dl Lipase 142 U/L Urine Color YELLOW Urine Appearance CLOUDY Urine pH 5.5 Urine Specific [place] 1.022 Urine Protein NEG Urine Glucose (UA) NEG Urine Ketones TRACE Urine Occult Blood NEG Urine Nitrite NEG Urine Bilirubin NEG Urine Urobilinogen NEG Urine Leukocyte Esterase TRACE Urine WBC (Auto) 10-30 /hpf Urine RBC (Auto) 0-4 /hpf Urine Hyaline Casts (Auto) 5-10 /lpf Urine Epithelial Cells (Auto) >30 /lpf Urine Bacteria (Auto) 2+ Urine Renal Epithelial Cells /lpf Urine Mucus PRESENT Problem List Medical Problems: (1) Bilateral lower extremity edema Status: Acute (2) Kidney stone Status: Acute (3) UTI (urinary tract infection) Status: Acute Past History anxiety, dementia, diverticulitis, hypertension, other (polycythemia vera, cardiac aneurysm ) Past Surgical History: adenoidectomy, appendectomy, cholecystectomy, tonsillectomy, other (D&C, hemorrhoidectomy, breast lumpectomy, b/l stapedectomy of the ears) Family History Patient reports no known family medical history. Social History Smoking: non-smoker Marital status: Housing status: lives with family Occupation status: retired History of MDRO No Allergies Coded Allergies: Clonidine (Verified Allergy, Intermediate, RASH, 11/19/17) Cyclobenzaprine (Verified Allergy, Intermediate, RASH, 11/19/17) Diltiazem (Verified Allergy, Intermediate, RASH, 11/19/17) Homatropine (Verified Allergy, Intermediate, SWELLING, 11/19/17) Hydrocodone (Verified Allergy, Intermediate, SWELLING, 11/19/17) Lisinopril (Verified Allergy, Intermediate, RASH, 11/19/17) Nitrofurantoin (Verified Allergy, Intermediate, RASH, 11/19/17) Penicillins (Verified Allergy, Intermediate, HIVES/RASH, 11/19/17) Pregabalin (Verified Allergy, Intermediate, tingly tongue, numb lips, 11/19) Quinapril (Verified Allergy, Intermediate, RASH, 11/19/17) Quinolones (Verified Allergy, Intermediate, SWELLING, 11/19/17) Levofloxacin (Verified Allergy, Unknown, GMG LIST, 11/19/17) Sulfamethoxazole w/Trimethoprim (Verified Allergy, Unknown, GMG LIST, 11/19) Amitriptyline (Verified Adverse Reaction, Mild, OPPOSITE EFFECTS, 11/19/17) Uncoded Allergies: ANTICHOLINERGIC (Allergy, Intermediate, SWELLING, 10/28/09) Medications Home Medications: Home Meds and Scripts Medications Dose Route/Sig Max Daily Dose Days Date Category Dose Instructions Neurontin (Gabapentin) 100 Mg Cap 100 Mg PO BID 11/19/17 Reported Hydrea Cap (Hydroxyurea) 500 Mg Cap 1,000 Mg PO DAILY 10/26/15 Reported Saturday, Saturday, Saturday Hydrea (Hydroxyurea) 500 Mg Cap 500 Mg PO DAILY 12/19/13 Reported Saturday, Saturday, , Saturday Advil (Ibuprofen) 200 Mg Tab 200-600 Mg PO Q8 PRN 04/15/12 Reported Inpatient Medications: Current Inpatient Medications Medications (Trade) Dose Ordered Sig/Demario Route Start Time Stop Time Status Last Admin Dose Admin Gabapentin (Neurontin Cap) 100 mg BID PO 11/19/17 09:00 12/19/17 08:59 11/19/17 08:47 100 MG Hydroxyurea (Hydrea Cap) 1,000 mg DAILY PO 11/19/17 09:00 12/19/17 08:59 11/19/17 08:48 1,000 MG Tamsulosin HCl (Flomax Cap) 0.4 mg QAM PO 11/19/17 09:00 12/19/17 08:59 11/19/17 08:48 0.4 MG Hydromorphone HCl (Dilaudid Inj) 0.5 mg Q3H PRN IV 11/19/17 03:00 12/03/17 02:59 Acetaminophen (Tylenol Tab) 650 mg Q4H PRN PO 11/19/17 03:45 12/19/17 03:44 Magnesium Hydroxide (Milk Of Magnesia Susp) 30 ml Q12H PRN PO 11/19/17 03:45 12/19/17 03:44 Ondansetron HCl (Zofran Inj) 4 mg Q6H PRN IV 11/19/17 03:45 12/19/17 03:44 Polyethylene (Miralax Powder Packet) 17 gm DAILY PRN PO 11/19/17 03:45 12/19/17 03:44 Sodium Chloride 1,000 ml @ 100 mls/hr Q10H IV 11/19/17 03:45 11/19/17 13:44 11/19/17 05:38 100 MLS/HR Hydralazine HCl (HydrALAZINE INJ) 5 mg Q6H PRN IV. 11/19/17 03:45 12/19/17 03:44 Review of Systems Review of Systems Constitutional: No fever, No chills Eyes: No double vision Neurological: No dizzy Endocrine: No excessive thirst Gastrointestinal: No abdominal pain, No nausea, No vomiting Cardiovascular: No chest pain Respiratory: No shortness of breath Skin: No rash Musculoskeletal: + arthritis, No back pain Female : No painful urination, No blood in urine Physical Exam Vital Signs: Vital Signs Past 12 Hours Date Time Temp Pulse Resp B/P (MAP) Pulse Ox O2 Delivery O2 Flow Rate FiO2 11/19/17 08:27 37.2 83 20 158/91 (113) 94 Room Air 11/19/17 08:00 Room Air 11/19/17 06:34 155/70 (98) 11/19/17 04:25 75 18 232/90 (137) 94 Room Air 11/19/17 04:25 75 18 232/90 94 T-piece 11/19/17 04:21 76 20 175/64 95 11/19/17 03:45 83 20 206/87 96 Nasal Cannula 4.0 11/19/17 03:05 99 Nasal Cannula 4.0 11/19/17 03:05 95 Nasal Cannula 4.0 11/19/17 03:02 75 18 210/86 86 Room Air 11/19/17 02:37 72 20 212/76 95 Room Air 11/19/17 01:14 83 20 213/85 97 Room Air 11/19/17 00:30 70 2/26/18 23:59 36.3 73 16 223/92 96 Room Air Physical Exam: General Appearance: no apparent distress Eyes: bilateral eyes normal inspection ENT: + pertinent finding (CHIGNIK LAGOON) Neck: no JVD Respiratory/Chest: no respiratory distress, no accessory muscle use Cardiovascular: no JVD Extremities: normal inspection Neurologic/Psychiatric: alert, normal mood/affect, + disoriented (See HPI. ) Skin: normal color Assessment & Plan Assessment & Plan A/P: 2mm right UVJ stone The stone is small enough to pass on own, and no evidence of sepsis or ARF at this time. Will plan for a trial of passage with MET. Continue Flomax, IVF, and pain medication PRN. Will check a KUB today. Strain all urine. Send stone for analysis if caught. Thanks for the consult. Will continue to follow along with primary service.
--- NOTE | 2017-11-19 10:59 | DIAGNOSTIC IMAGING REPORT ---
KUB HISTORY: Follow-up study in a patient with a right ureterovesicular junction calculus right UVJ stone COMPARISON: CT abdomen and pelvis 11/19/2017 FINDINGS: The bowel gas pattern is non-obstructive. There is no organomegaly. The previously noted 2 mm calculus at the level of the right ureterovesicular junction is not definitively seen. Calcifications of the pelvis suggest phleboliths. No nephrolithiasis or ureteral calculi are identified. No pneumoperitoneum or pneumatosis. No fracture. Multilevel degenerative changes of the spine are noted in conjunction with degenerative changes of the hips. The bones appear osteopenic. Heart is enlarged. IMPRESSION: Previously noted 2 mm calculus of the right ureterovesicular junction is not identified on today's exam. Electronically signed by: Gonzalez Reyes M.D. 11/19/2017 10:58 AM Dictated Date/Time: 11/19/2017 10:56 AM
[2017-11-19] MEDS ORDERED: FLM4 PO (12:05)
--- NOTE | 2017-11-19 12:05 | Discharge Instructions ---
Discharge Instructions Date of Service Nov 19, 2017. Admission Reason for Admission: Htn, Hydronephrosis W/ Obstructing Calculus Discharge Discharge Diagnosis / Problem: obstructing ureteral stone Discharge Goals Goal(s): Decrease discomfort, Improve function, Increase independence, Improve disease control, Improve nutritional status, Learn about illness, Diagnostic testing, Therapeutic intervention, Prevent Disease Progression, Specific goals Activity Recommendations Activity Limitations: resume your previous activity Lifting Limitations: none Exercise/Sports Limitations: as tolerated . Instructions / Follow-Up Instructions / Follow-Up you was having obstructing ureteral stone possible passed ureteral stone, you need to follow-up with urologist as instructed you ahve accelerated hypertension with history of HTN : is better new medicine is Flomax has sent to your pharmacy, possible can stop this medicine in 1 week, or after discussing with pcp - you need to follow up with your primary care physician in 1 week, - take medication as instructed, never overdose or any misuse, or take with alcohol, because misuse of medicine may cause organ damage or , call your primary care physician if have questions of medicaitons. - call your primary care physician OR go to local emergency room if has any fever/chill, chest pain, shortness of breathing, nausea/vomiting/abdominal pain , facial droop/slurry speech/local weakness, or if has any questions. - fall precaution - diet as instructed Current Hospital Diet Patient's current hospital diet: Regular Diet Discharge Diet Recommended Diet: AHA Diet (Heart Healthy) Pending Studies Studies pending at discharge: no Medical Emergencies . Who to Call and When: Medical Emergencies: If at any time you feel your situation is an emergency, please call 911 immediately. . Non-Emergent Contact Non-Emergency issues call your: Primary Care Provider, Urologist . . "Provider Documentation" section prepared by Jj Banks. . VTE Core Measure Inpt VTE Proph given/why not?: SCD's
--- NOTE | 2017-11-19 14:14 | Progress Note ---
Subjective Date of Service: Nov 19, 2017. Subjective Pt evaluation today including: conversation w/ patient, conversation w/ family , physical exam, chart review, lab review, review of studies, conversation w/ field service consultant, review of inpatient medication list Feeling very tired, oxygenation, generalized weakness, no pain now Problem List Medical Problems: (1) Bilateral lower extremity edema Status: Acute (2) Kidney stone Status: Acute (3) UTI (urinary tract infection) Status: Acute Review of Systems Constitutional: + weakness, + fatigue, No fever, No chills, No sweats, No weight loss, No problem reported Eyes: No worsening of vision, No eye pain, No redness, No discharge, No diplopia ENT: No hearing loss, No unusual epistaxis, No nasal symptoms, No sore throat, No tinnitus, No dental problems, No trouble swallowing Respiratory: No cough, No sputum, No wheezing, No shortness of breath, No dyspnea on exertion, No dyspnea at rest, No hemoptysis Cardiac: No chest pain, No orthopnea, No PND, No edema, No claudication, No palpitations Abdomen: + nausea, No pain, No vomiting, No diarrhea, No constipation Musculoskeletal: No joint pain, No muscle pain, No swelling, No calf pain Female : No dysuria, No urinary frequency, No hematuria, No incontinence, No abnormal vaginal bleeding, No vaginal discharge Neurologic: No memory loss, No paralysis, No weakness, No numbness/tingling, No vertigo, No balance problems Psychiatric: No depression symptoms, No anhedonism, No anxiety, No insomnia, No substance abuse Heme: No abnormal bleeding/bruising, No clotting problems, No swollen lymph nodes, No night sweats Endo: No fatigue, No excessive thirst, No excessive urination Skin: No rash, No itch, No new/changing skin lesions, No color change, No bleeding Objective Vital Signs Date Time Temp Pulse Resp B/P (MAP) Pulse Ox O2 Delivery O2 Flow Rate FiO2 11/19/17 13:25 36.6 84 18 123/73 (90) 94 Room Air 11/19/17 13:02 36.5 81 18 94 4.0 11/19/17 12:23 36.5 81 18 101/53 (69) 94 Room Air 11/19/17 12:00 Room Air 11/19/17 08:27 37.2 83 20 158/91 (113) 94 Room Air 11/19/17 08:00 Room Air 11/19/17 06:34 155/70 (98) 11/19/17 04:25 75 18 232/90 (137) 94 Room Air 11/19/17 04:25 75 18 232/90 94 T-piece 11/19/17 04:21 76 20 175/64 95 11/19/17 03:45 83 20 206/87 96 Nasal Cannula 4.0 11/19/17 03:05 99 Nasal Cannula 4.0 11/19/17 03:05 95 Nasal Cannula 4.0 11/19/17 03:02 75 18 210/86 86 Room Air 11/19/17 02:37 72 20 212/76 95 Room Air 11/19/17 01:14 83 20 213/85 97 Room Air 11/19/17 00:30 70 11/18/17 23:59 36.3 73 16 223/92 96 Room Air Physical Exam General Appearance: WD/WN, no apparent distress, + obese, + pertinent finding ( Frail) Eyes: normal inspection, PERRL, EOMI, sclerae normal ENT: normal ENT inspection, hearing grossly normal, pharynx normal Neck: supple, no adenopathy, thyroid normal, no JVD, no carotid bruits, trachea midline Respiratory/Chest: chest non-tender, normal breath sounds, no respiratory distress, no accessory muscle use, + decreased breath sounds Cardiovascular: regular rate, rhythm, no edema, no gallop, no JVD, no murmur Abdomen: normal bowel sounds, non tender, soft, no organomegaly, no pulsatile mass Extremities: normal range of motion, non-tender, normal inspection, no pedal edema, no calf tenderness, normal capillary refill, pelvis stable Neurologic/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: 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 nml as tested, no motor/sensory deficits, alert, normal mood/affect, oriented x 3 Skin: normal color, warm/dry, no rash Lymphatic: no adenopathy Laboratory Results Last 24 Hours Test 11/19/17 00:30 11/19/17 01:43 11/19/17 01:50 White Blood Count 11.98 K/uL Red Blood Count 3.98 M/uL Hemoglobin 14.2 g/dL Hematocrit 41.5 % Mean Corpuscular Volume 104.3 fL Mean Corpuscular Hemoglobin 35.7 pg Mean Corpuscular Hemoglobin Concent 34.2 g/dl Platelet Count 394 K/uL Mean Platelet Volume 10.9 fL Neutrophils (%) (Auto) 71.5 % Lymphocytes (%) (Auto) 20.4 % Monocytes (%) (Auto) 7.3 % Eosinophils (%) (Auto) 0.4 % Basophils (%) (Auto) 0.1 % Neutrophils # (Auto) 8.58 K/uL Lymphocytes # (Auto) 2.44 K/uL Monocytes # (Auto) 0.87 K/uL Eosinophils # (Auto) 0.05 K/uL Basophils # (Auto) 0.01 K/uL RDW Standard Deviation 52.5 fL RDW Coefficient of Variation 13.9 % Immature Granulocyte % (Auto) 0.3 % Immature Granulocyte # (Auto) 0.03 K/uL Sodium Level 141 mmol/L Potassium Level mmol/L 3.9 mmol/L Chloride Level 107 mmol/L Carbon Dioxide Level 25 mmol/L Anion Gap 9.0 mmol/L Blood Urea Nitrogen 21 mg/dl Creatinine 1.18 mg/dl Estimated GFR () 49.4 Estimated GFR (Non- 42.6 BUN/Creatinine Ratio 17.8 Random Glucose 138 mg/dl Calcium Level 9.0 mg/dl Total Bilirubin 0.3 mg/dl 0.3 mg/dl Direct Bilirubin mg/dl Aspartate Amino Transf (AST/SGOT) U/L 15 U/L Alanine Aminotransferase (ALT/SGPT) 23 U/L Alkaline Phosphatase 61 U/L Total Protein 7.5 gm/dl Albumin 3.5 gm/dl Lipase 142 U/L Urine Color YELLOW Urine Appearance CLOUDY Urine pH 5.5 Urine Specific [place] 1.022 Urine Protein NEG Urine Glucose (UA) NEG Urine Ketones TRACE Urine Occult Blood NEG Urine Nitrite NEG Urine Bilirubin NEG Urine Urobilinogen NEG Urine Leukocyte Esterase TRACE Urine WBC (Auto) 10-30 /hpf Urine RBC (Auto) 0-4 /hpf Urine Hyaline Casts (Auto) 5-10 /lpf Urine Epithelial Cells (Auto) >30 /lpf Urine Bacteria (Auto) 2+ Urine Renal Epithelial Cells /lpf Urine Mucus PRESENT Assessment and Plan 82 y/o F admitted because of obstructing ureteral stone associated with lower abdominal pain, nausea, vomiting and dysuria. Hx anxiety, diverticulitis, HTN, polycythemia vera, dementia. Obstructing calculus, improvement resolved, urology saw the patient, to be repeated, possible passed ureteral stone, will have follow-up with urologist Accelerated hypertension with history of HTN : Possible from control pain, which is resolved, continue home blood pressure medication Polycythemia Vera, stable , cont Hydroxyuria. Generalized weakness, nausea patient, possible from the episodes of kidney stone , Hx anxiety, diverticulitis, HTN, polycythemia vera, dementia; stable continue current medication Continue supportive care, decrease continue IV fluid , treat symptom , increase activity, transferred to [facility], possible discharge home tomorrow if patient is tolerating diet, discussed about care plan and answered all questions and patient and family agreed, Continued [facility] stay due to: multiple IV medications needed Discharge planning: home
[2017-11-20] VITALS: BP 133/73; PULSE 82; TEMP 36.8; O2SAT 92
[2017-11-20] MEDS: TAMSULOSIN HCL 0.4 MG CAP PO SCH (07:34)
[2017-11-20] MEDS: GABAPENTIN 100 MG CAP PO SCH (07:34)
[2017-11-20] MEDS: HYDROXYUREA 500 MG CAP PO SCH (07:35)
[2017-11-20 07:45] VITALS: BP 172/72; PULSE 89; TEMP 36.4; O2SAT 92
--- NOTE | 2017-11-20 09:30 | Progress Note ---
Subjective Date of Service: Nov 20, 2017. Subjective Pt evaluation today including: conversation w/ patient, chart review Voiding: no voiding problems Pt pleasantly confused. Unaware she was admitted to the hospital for a stone this morning. She is not oriented to which hospital she lives. States she lives with her . Denies pain. KUB reviewed from yesterday. UVJ stone not visualized. Problem List Medical Problems: (1) Bilateral lower extremity edema Status: Acute (2) Kidney stone Status: Acute (3) UTI (urinary tract infection) Status: Acute Review of Systems Constitutional: No fever, No chills Respiratory: No shortness of breath Cardiac: No chest pain Abdomen: No pain, No nausea, No vomiting Female : No dysuria, No hematuria Heme: No abnormal bleeding/bruising Objective Vital Signs Date Time Temp Pulse Resp B/P (MAP) Pulse Ox O2 Delivery O2 Flow Rate FiO2 11/20/17 07:45 36.4 89 16 172/72 (105) 92 11/20/17 00:00 Room Air 11/20/17 00:00 36.8 82 20 133/73 (93) 92 Room Air 11/19/17 19:50 66 148/66 (93) 11/19/17 15:50 Room Air 11/19/17 15:36 36.9 79 18 98/60 (73) 94 Room Air 11/19/17 13:25 36.6 84 18 123/73 (90) 94 Room Air 11/19/17 13:02 36.5 81 18 94 4.0 11/19/17 12:23 36.5 81 18 101/53 (69) 94 Room Air 11/19/17 12:00 Room Air Physical Exam General Appearance: no apparent distress, + obese Eyes: normal inspection ENT: hearing grossly normal Neck: no JVD Respiratory/Chest: no respiratory distress, no accessory muscle use Cardiovascular: no JVD Extremities: normal inspection Neurologic/Psychiatric: alert, normal mood/affect, oriented x 3 Skin: normal color Assessment and Plan A/P: 2mm right UVJ stone The pt is afebrile. Pain resolved. No evidence for stone on KUB. ? passed. Pt OK for d/c home from perspective. Will plan for outpatient f/u in 2-3 weeks with repeat imaging at that time. Will arrange. Thanks for allowing us to participate in this pt's care. Recall PRN issues. Continued [facility] stay due to: multiple IV medications needed Discharge planning: home
[2017-11-20 11:47] VITALS: BP 172/72; PULSE 89; TEMP 36.4; O2SAT 92
--- NOTE | 2017-11-20 12:45 | Discharge Summary ---
Discharge Summary Date of Service Nov 20, 2017. Discharge Summary Admission Date: Nov 19, 2017 at 03:33 Discharge Date: Nov 20, 2017 Discharge Disposition: Home Principal Diagnosis: obstructing ureteral stone associated with lower abdominal pain, nausea, Procedures: No Consultations: Urologist Medication Reconciliation New Medications: Tamsulosin HCl (Tamsulosin HCl) 0.4 Mg Cap 0.4 MG PO QAM for 7 Days, #7 CAP Continued Medications: Gabapentin (Neurontin) 100 Mg Cap 100 MG PO BID, CAP Hydroxyurea (Hydrea) 500 Mg Cap 500 MG PO DAILY, CAP Saturday, Saturday, , Saturday Hydroxyurea (Hydrea Cap) 500 Mg Cap 1000 MG PO DAILY, CAP Saturday, Saturday, Saturday Ibuprofen Tab (Advil) 200 Mg Tab 200-600 MG PO Q8 PRN for Pain, TAB Discharge Exam Doing well, up and walk, tolerate diet, no nausea, denies abdominal pain, denies dysuria, fever or chills Review of Systems: Constitutional: No fever, No chills, No sweats, No weight loss, No weakness , No fatigue, No problem reported Eyes: No worsening of vision, No eye pain, No redness, No discharge, No diplopia, No problem reported ENT: No hearing loss, No unusual epistaxis, No nasal symptoms, No sore throat, No tinnitus, No dental problems, No trouble swallowing, No problem reported Respiratory: No cough, No sputum, No wheezing, No shortness of breath, No dyspnea on exertion, No dyspnea at rest, No hemoptysis, No problem reported Cardiovascular: No chest pain, No orthopnea, No PND, No edema, No claudication, No palpitations, No problem reported Abdomen: No pain, No nausea, No vomiting, No diarrhea, No constipation, No GI bleeding, No problem reported Musculoskeletal: No joint pain, No muscle pain, No swelling, No calf pain, No problem reported Genitourinary - Female: No dysuria, No urinary frequency, No urinary urgency , No urinary incontinence, No urinary retention, No hematuria, No dysmenorrhea, No menorrhagia, No metrorrhagia, No rash, No vaginal bleeding, No vaginal discharge, No vaginal itching, No vulvodynia, No , No problem reported Neurologic: No memory loss, No paralysis, No weakness, No numbness/tingling , No vertigo, No balance problems, No problem reported Psychiatric: No depression symptoms, No anhedonism, No anxiety, No insomnia , No substance abuse, No problem reported Endocrine: No fatigue, No excessive thirst, No excessive urination, No problem reported Hematologic / Lymphatic: No abnormal bleeding/bruising, No clotting problems , No swollen lymph nodes, No night sweats, No problem reported Integumentary: No rash, No itch, No new/changing skin lesions, No color change, No bleeding, No problem reported Physical Exam: General Appearance: WD/WN, no apparent distress, + obese Eyes: normal inspection, PERRL ENT: normal ENT inspection, hearing grossly normal Neck: supple Respiratory/Chest: chest non-tender, lungs clear, normal breath sounds, no respiratory distress, no accessory muscle use Cardiovascular: regular rate, rhythm, no edema, no gallop, no JVD, no murmur , normal peripheral pulses Abdomen / GI: normal bowel sounds, non tender, soft, no organomegaly, no pulsatile mass Extremities: normal inspection, no calf tenderness, normal capillary refill Neurologic/Psychiatric: runway model II-XII nml as tested, no motor/sensory deficits , alert, normal mood/affect, normal reflexes, oriented x 3 Skin: normal color, warm/dry Hospital Course 82 y/o F admitted because of obstructing ureteral stone associated with lower abdominal pain, nausea, vomiting and dysuria. Hx anxiety, diverticulitis, HTN, polycythemia vera, dementia. Obstructing calculus, improvement/resolved, urology saw the patient, to be repeated, possible passed ureteral stone, will have follow-up with urologist Accelerated hypertension with history of HTN : Possible from control pain, which is resolved, continue home blood pressure medication Polycythemia Vera, stable , cont Hydroxyuria. Generalized weakness, nausea patient, possible from the episodes of kidney stone , Hx anxiety, diverticulitis, HTN, polycythemia vera, dementia; stable continue current medication Continue supportive care, decrease continue IV fluid , treat symptom , increase activity, transferred to [facility], discharge home discussed about care plan and answered all questions and patient and family agreed, Instructions / Follow-Up you was having obstructing ureteral stone possible passed ureteral stone, you need to follow-up with urologist as instructed you ahve accelerated hypertension with history of HTN : is better new medicine is Flomax has sent to your pharmacy, possible can stop this medicine in 1 week, or after discussing with pcp - you need to follow up with your primary care physician in 1 week, - take medication as instructed, never overdose or any misuse, or take with alcohol, because misuse of medicine may cause organ damage or , call your primary care physician if have questions of medicaitons. - call your primary care physician OR go to local emergency room if has any fever/chill, chest pain, shortness of breathing, nausea/vomiting/abdominal pain , facial droop/slurry speech/local weakness, or if has any questions. - fall precaution - diet as instructed Total Time Spent: Greater than 30 minutes This includes examination of the patient, discharge planning, medication reconciliation, and communication with other providers. Discharge Instructions Please refer to the electronic Patient Visit Report (Discharge Instructions) for additional information. Additional Copies To RV. Jansen MD
== END 2017-11-20 12:10 | disposition home or self-care (01) ==
LOC: C.EDB 23:53 → C.2E 11-19 03:33 → ENRESERV 11-19 04:02 → C.MS4W 11-19 13:30
PROVIDERS: ADMIT Internal Medicine; ATTEND Hospitalist
DX: N20.1 Calculus of ureter (principal); F41.9 Anxiety disorder, unspecified; D45 Polycythemia vera; I10 Essential (primary) hypertension; F03.90 Unspecified dementia, unspecified severity, without behavioral disturbance, psychotic disturbance, mood disturbance, and anxiety; Z90.49 Acquired absence of other specified parts of digestive tract; Z90.89 Acquired absence of other organs; J45.909 Unspecified asthma, uncomplicated; Z88.0 Allergy status to penicillin; Z88.1 Allergy status to other antibiotic agents; Z88.2 Allergy status to sulfonamides; Z88.8 Allergy status to other drugs, medicaments and biological substances

== ENCOUNTER 2018-11-12 06:21 | Observation (INO) ==
--- NOTE | 2018-11-12 06:44 | XRay Report ---
XR chest 1V portable CLINICAL HISTORY: 83 years-old Female presenting with weakness. TECHNIQUE: Portable upright AP view of the chest was obtained. COMPARISON: 12/19/2013. FINDINGS: Atherosclerosis of the aortic arch. Cardiac silhouette enlarged. Pulmonary vascular prominence. Sligh t added density at the right lung base is likely vascular in etiology. No other focal opacity. No lar ge effusion or pneumothorax. Osteopenia may be present. Degenerative changes of the spine and glenohu meral joints. IMPRESSION: 1. Cardiomegaly with mild volume overload. No quintin pulmonary edema. 2. Minimal added density at the right lung base is likely vascular in etiology or due to overlapping soft tissue. Electronically signed by: Ramos Alvarez M.D. 11/12/2018 6:42 AM
[2018-11-12] MEDS ORDERED: SODIUM CHLORIDE 0.9% 500 ML IV SCH (06:45)
--- NOTE | 2018-11-12 07:14 | CT Scan Report ---
CT SCAN OF THE BRAIN WITHOUT IV CONTRAST CLINICAL HISTORY: Change in mental status. COMPARISON STUDY: CT of the brain dated 04/15/2012. TECHNIQUE: Unenhanced axial CT scan of the brain is performed from the vertex to the skull base. A do se lowering technique was utilized adhering to the principles of ALARA. The examination is modestly d egraded by motion artifact. CT DOSE: 537.48 mGy.cm FINDINGS: Brain parenchyma: There are age-related involutional changes noting mild subcortical and periventric ular microangiopathic change. There is no hemorrhage, mass effect, or evidence of acute territorial i schemia by CT criteria. Laura-white matter differentiation is preserved. No extra-axial fluid collecti on is seen. Ventricles, sulci, cisterns: Prominent secondary to involutional change. Intracranial vasculature: There is atherosclerotic calcification of the cavernous carotid and vertebr al arteries. Calvarium: Unremarkable. Sinuses and mastoids: An impacted molar protrudes into the left maxillary antrum. The visualized para nasal sinuses are otherwise clear. The mastoid air cells are well pneumatized. Orbits: The bony orbits are grossly intact. IMPRESSION: There is no hemorrhage, mass effect, or evidence of acute territorial ischemia by CT dawnt papito. Electronically signed by: Zeeshan Light M.D. 11/12/2018 7:13 AM
[2018-11-12 07:37] LABS: Basophils # (auto) 0.02 K/uL (0-0.2); Basophils % (auto) 0.2 %; Eosinophils # (auto) 0.05 K/uL (0-0.5); Eosinophils % (auto) 0.5 %; Hematocrit (blood only) 43.5 % (37-47); Hemoglobin 14.6 g/dL (12.0-16.0); Immature Granulocytes # (auto) 0.01 K/uL (0.00-0.02); Immature Granulocytes % (auto) 0.1 %; Lymphocytes # (auto) 3.28 K/uL (1.2-3.4); Lymphocytes % (auto) 34.5 %; Mean Corpuscular Hgb Conc 33.6 g/dL (32-36); Mean Corpuscular Volume 101.6 fL (80-100); Mean Platelet Volume 11.5 fL (7.4-10.4); Monocytes # (auto) 0.81 K/uL (0.11-0.59); Monocytes % (auto) 8.5 %; Neutrophils # (auto) 5.33 K/uL (1.4-6.5); Neutrophils % (auto) 56.2 %; Platelet Count 363 K/uL (130-400); Red Blood Count 4.28 M/uL (4.2-5.4)
[2018-11-12] MEDS ORDERED: MoRPHine SULFATE 4 MG/ML 1 ML CARP\\VIAL IV STA (07:40)
[2018-11-12] MEDS ORDERED: ONDANSETRON INJ 2 MG/ML 2 ML VIAL IV STA (07:40)
[2018-11-12] MEDS ORDERED: METOPROLOL TARTRATE 1 MG/ML VIAL IV PRN (07:40)
[2018-11-12] MEDS ORDERED: ACETAMINOPHEN 500 MG TAB PO STA (07:40)
[2018-11-12 07:45] LABS: Appearance Urine Clear (Clear); Bacteria Urine Automated Negative (Negative); Bilirubin Urine Negative (Negative); Blood Urine Negative (Negative); Color Urine Yellow; Epithelial Cell Urine Auto >30 /lpf (0-5); Glucose Urine UA Negative (Negative); Ketones Urine Negative (Negative); Leukocyte Esterase Urine Trace (Negative); Nitrite Urine Negative (Negative); Protein Urine Negative (Negative); RBC Urine Automated 0-4 /hpf (0-4); Specific Gravity Urine 1.009 (1.000-1.030); Urobilinogen Urine Negative (Negative)
[2018-11-12 07:54] LABS: Alanine Aminotransferase 20 U/L (12-78); Albumin Level 3.5 gm/dl (3.4-5.0); Aspartate Aminotransferase 17 U/L (15-37); BUN Creatinine Ratio 12.3 (10-20); Blood Urea Nitrogen 12 mg/dl (7-18); Calcium 8.7 mg/dl (8.5-10.1); Carbon Dioxide 24 mmol/L (21-32); Chloride 109 mmol/L (98-107); Creatinine Clr Calc Pharmacy 50.6 ml/min; Est GFR (African American) 62.9; Est GFR (Non-African American) 54.3; Glucose 104 mg/dl (70-99); Potassium 3.8 mmol/L (3.5-5.1); Sodium 141 mmol/L (136-145)
[2018-11-12 08:04] LABS: Alkaline Phosphatase 70 U/L (45-117); Bilirubin,Total 0.3 mg/dl (0.2-1); Creatine Kinase 64 U/L (26-192); Creatine Kinase MB < 1.0 ng/ml (0.5-3.6); Globulin 3.7 gm/dl (2.5-4.0); Total Protein 7.2 gm/dl (6.4-8.2)
[2018-11-12] MEDS ORDERED: HydrALAZINE HCL 20 MG/ML VIAL IV ONE (10:16)
[2018-11-12] MEDS ORDERED: OPTIRAY 320 125ml IV PRN (10:29)
--- NOTE | 2018-11-12 10:51 | CT Scan Report ---
CT angio neck with con, CT angio head w con CLINICAL HISTORY: 83 years-old Female with Pt c/o AMS. Acutely altered mental status with confusio n COMPARISON STUDY: CT head of same day, CT chest 07/02/2014 TECHNIQUE: Following the IV administration of 120 mL of Optiray 320, CT angiogram of the head and nec k was performed from the aortic arch to the skull apex. Images are reviewed in the axial, sagittal, a nd coronal planes. 3-D MIPS images are created and assessed. IV contrast was administered without com plication. All measurements were calculated based on NASCET criteria. A dose lowering technique was utilized adhering to the principles of ALARA. CT DOSE: 617.57 mGy.cm FINDINGS: Fusiform dilation about the ascending thoracic aorta measures 5.3 x 5.2 cm, previously measuring up t o 5.2 cm on study from 07/02/2014. Moderate associated mixed plaque formation without aneurysm identi fied. The imaged pulmonary arterial tree appears unremarkable. Patency of the imaged bilateral subcla vian arteries. Patency of the bilateral common carotid arteries. Medial course of the right common ca rotid artery and right carotid bulb. Moderate mixed plaque formation of the left carotid bulb results in less than 50% luminal narrowing. Mild atheromatous plaque about the right carotid bulb causes les s than 50% luminal narrowing. Calcified plaque noted about the cavernous and clinoid segments of the internal carotid arteries without significant stenosis. Diminutive right A1 segment is likely develop mental. The left A1 segment, bilateral middle cerebral arteries and anterior communicating artery zehra ear unremarkable and are widely patent. Codominant vertebral arteries are widely patent and unremarkable. Mild calcified plaque about the V4 segment left vertebral artery results in less than 50% luminal narrowing. The basilar artery and righ t posterior cerebral artery are widely patent. 3 mm segment of 60% luminal narrowing involves the pro ximal P1 segment left posterior cerebral artery, image 94 series 3 and image 48 series 300. Cerebral venous sinuses appear patent. Imaged lung apices appear clear. No pneumothorax. Thyroid soft tissues appear unremarkable. Degenerat thea changes of the spine are noted. Mastoid air cells and middle ear cavities are clear. The paranasa l sinuses are generally clear. Subcentimeter osteoma about the right mid ethmoid air cells. IMPRESSION: 1. 3 mm segment of 60% luminal narrowing involves the proximal P1 segment left posterior cerebral art doyle. 2. Moderate mixed plaque formation of the left carotid bulb results in less than 50% luminal narrowin g. 3. Fusiform aneurysmal dilation of the ascending thoracic aorta, 5.3 x 5.2 cm, has not significantly changed from 2014. No dissection identified. 4. Additional findings as above. The above report was generated using voice recognition software. It may contain grammatical, syntax o r spelling errors. Electronically signed by: Gonzalez Reyes M.D. 11/12/2018 10:49 AM
[2018-11-12] MEDS ORDERED: hydroCHLOROthiazide 25 MG TAB PO STA (11:16)
[2018-11-12] MEDS ORDERED: ACETAMINOPHEN 325 MG TAB PO PRN (11:16)
[2018-11-12] MEDS ORDERED: ONDANSETRON INJ 2 MG/ML 2 ML VIAL IV PRN (11:16)
--- NOTE | 2018-11-12 12:25 | Emergency Department Note ---
Entered by Chelo Yanez acting as a scribe for History of Present Illness General Chief complaint: Confusion Time Seen by Provider: 11/12/18 06:27 Source: patient and RN notes reviewed Mode of arrival: EMS History of Present Illness Provider complaint: confusion Onset (ago): day(s) (today) Location: head Pain Consistency: + now resolved and + other (episode) Quality: + other (confusion) Associated symptoms: + other (left flank pain. Denies: abdominal pain) The patient is a an year old 83 who presents to the Emergency Room with complaints of a resolved episode of confusion beginning this morning. Nursing staff reports the patient was unsure of her name or where she was this morning. The patient states she is unsure why EMS was called this morning. She denies abdominal pain. Nursing staff notes the patient was complaining of left flank pain. Home Medications Home Medications Medication Instructions Recorded Confirmed Type Ibuprofen Tab (ADVIL) 200 - 600 mg PO Q8 PRN #0 tab 04/15/12 History HYDROXYUREA (HYDREA) 500 mg PO DAILY #0 cap 12/19/13 History Hydroxyurea (Hydrea Cap) 1,000 mg PO DAILY #0 cap 10/26/15 History GABAPENTIN (NEURONTIN) 100 mg PO BID #0 cap 11/19/17 History Tamsulosin HCl 0.4 mg PO QAM 7 Days #7 cap 11/19/17 Rx Allergies Allergy/AdvReac Type Severity Reaction Status Date / Time clonidine Allergy Intermediate RASH Verified 11/19/17 01:24 cyclobenzaprine Allergy Intermediate RASH Verified 11/19/17 01:24 diltiazem Allergy Intermediate RASH Verified 11/19/17 01:24 homatropine Allergy Intermediate SWELLING Verified 11/19/17 01:24 hydrocodone Allergy Intermediate SWELLING Verified 11/19/17 01:24 lisinopril Allergy Intermediate RASH Verified 11/19/17 01:24 nitrofurantoin Allergy Intermediate RASH Verified 11/19/17 01:24 Penicillins Allergy Intermediate HIVES/RASH Verified 11/19/17 01:24 pregabalin Allergy Intermediate tingly Verified 11/19/17 01:24 tongue, numb lips quinapril Allergy Intermediate RASH Verified 11/19/17 01:24 Quinolones Allergy Intermediate SWELLING Verified 11/19/17 01:24 Bactrim Allergy Unknown GMG LIST Verified 11/19/17 01:24 levofloxacin Allergy Unknown GMG LIST Verified 11/19/17 01:24 amitriptyline AdvReac Mild OPPOSITE Verified 11/19/17 01:24 EFFECTS ANTICHOLINERGIC Allergy Intermediate SWELLING Uncoded 10/28/09 03:21 Past Med/Surg History Medical History UTI (urinary tract infection) (Resolved) Diverticulitis (Resolved) HTN (hypertension) (Chronic) Hydronephrosis with obstructing calculus (Resolved) Social History Feels Safe at Home: Yes Smoking Status: Never smoker Review of Systems See HPI for pertinent positives & negatives. and A total of 10 systems reviewed and were otherwise negative Physical Exam Vital Signs Vital Signs - 24 hr 11/12/18 06:33 11/12/18 07:13 11/12/18 07:53 Temperature 36.7 C Temperature Source Oral Sepsis Recent Fever Within 48 Hours No Sepsis New/Unexplained Change in Mental Status Yes Sepsis Action Taken by Nursing No Action Required Pulse Rate 90 Pulse Rate [Apical] 96 H Pulse Rhythm Regular Pulse Rhythm [Apical] Pulse Strength Normal Respiratory Rate 22 22 Respiratory Effort / Characteristics Non-Labored Spontaneous Respiratory Depth Normal Normal Respiratory Pattern Regular Blood Pressure 217/103 H 228/103 H Blood Pressure [Right Arm] 228/103 H Blood Pressure Mean 141 Blood Pressure Mean [Right Arm] 144 Blood Pressure Position Lying Pulse Oximetry 100 99 Oxygen Delivery Method Room Air Room Air 11/12/18 08:01 11/12/18 09:03 11/12/18 10:05 Temperature Temperature Source Sepsis Recent Fever Within 48 Hours Sepsis New/Unexplained Change in Mental Status Sepsis Action Taken by Nursing Pulse Rate Pulse Rate [Apical] 109 H 92 H 68 Pulse Rhythm Pulse Rhythm [Apical] Regular Pulse Strength Respiratory Rate 21 21 21 Respiratory Effort / Characteristics Respiratory Depth Normal Respiratory Pattern Blood Pressure Blood Pressure [Right Arm] 206/97 H 202/70 H 212/122 H Blood Pressure Mean Blood Pressure Mean [Right Arm] 133 114 152 Blood Pressure Position Pulse Oximetry 96 96 94 Oxygen Delivery Method Room Air 11/12/18 10:42 11/12/18 10:59 Temperature Temperature Source Sepsis Recent Fever Within 48 Hours Sepsis New/Unexplained Change in Mental Status Sepsis Action Taken by Nursing Pulse Rate Pulse Rate [Apical] 82 Pulse Rhythm Pulse Rhythm [Apical] Pulse Strength Respiratory Rate 21 Respiratory Effort / Characteristics Respiratory Depth Respiratory Pattern Blood Pressure Blood Pressure [Right Arm] 209/81 H Blood Pressure Mean Blood Pressure Mean [Right Arm] 123 Blood Pressure Position Pulse Oximetry 94 Oxygen Delivery Method Room Air GENERAL: Awake, alert, well-appearing, in no distress. Hard of hearing. HENT: Normocephalic, atraumatic. Oropharynx unremarkable. EYES: Normal conjunctiva. Sclera non-icteric. NECK: Supple. No nuchal rigidity. FROM. No masses. RESPIRATORY: Clear to auscultation. No wheezes. No rales. Normal respiratory effort. CARDIAC: Normal rate. Normal rhythm. No murmurs. No rubs. Extremities warm and well perfused. Pulses equal. No JVD. GI: Soft, non-distended. No tenderness to palpation. No rebound or guarding. No masses. RECTAL: Deferred. MUSCULOSKELETAL: Atraumatic. Chest examination reveals no tenderness. The back is symmetrical on inspection without obvious abnormality. There is no CVA tenderness to palpation. No joint edema. LOWER EXTREMITIES: Calves are equal size bilaterally and non-tender. No edema. No discoloration. NEURO: Normal sensorium. No sensory or motor deficits noted. Course 0628: Past medical records reviewed. The patient was evaluated in room A10, and a complete history and physical examination were performed. 0831: Upon reevaluation, the patient is still confused. 0850: I reviewed the patient's case with Dr. Bravo, [facility] hospitalist. He will evaluate the patient for further management. Consultations Consultation #1: Dr. Bravo, [facility] hospitalist. Time: 08:50 Administered Medications Ioversol (Optiray 320 125ml) 120 ml IV ONCE PRN PRN Reason: Interaction Checking Stop: 11/16/18 10:28 Last Admin: 11/12/18 10:30 Dose: 120 ml Discontinued Medications Acetaminophen (Tylenol) 1,000 mg PO NOW STA Stop: 11/12/18 07:41 Last Admin: 11/12/18 07:53 Dose: 1,000 mg Hydralazine HCl (Hydralazine Hcl) 5 mg IV NOW ONE Stop: 11/12/18 10:17 Last Admin: 11/12/18 10:25 Dose: 5 mg Sodium Chloride (Nss) 500 mls @ 999 mls/hr IV .Q31M HARPAL Stop: 11/12/18 07:15 Last Infusion: 11/12/18 07:54 Dose: Admin: 11/12/18 07:19 Dose: 999 mls/hr Metoprolol Tartrate (Lopressor) 5 mg IV Q5M PRN PRN Reason: Tachycardia Stop: 12/12/18 07:39 Last Admin: 11/12/18 07:53 Dose: 5 mg Morphine Sulfate (Morphine Sulfate) 4 mg IV NOW STA Stop: 11/12/18 07:41 Last Admin: 11/12/18 07:53 Dose: 4 mg Ondansetron HCl (Zofran) 4 mg IV NOW STA Stop: 11/12/18 07:41 Last Admin: 11/12/18 07:53 Dose: 4 mg Medical Decision Making Differential Diagnosis Differential includes acute coronary syndrome, myocardial infarction, CVA, TIA , anemia, infection, pneumonia, UTI, pyelonephritis, poor nutrition, dehydration , electrolyte disturbance,hypoglycemia. Medical Records Attestation: I reviewed the patient's medical records. Home Medications Current Medication List: was personally reviewed by me Laboratory Data Attestation: I reviewed the patient's lab results. Result diagrams: 11/12/18 07:25 11/12/18 07:25 Lab Results 11/12/18 11/12/18 11/12/18 Range/Units 07:25 07:25 07:30 WBC 9.50 (4.8-10.8) K/uL RBC 4.28 (4.2-5.4) M/uL Hgb 14.6 (12.0-16.0) g/dL Hct 43.5 (37-47) % MCV 101.6 H (80-100) fL MCH 34.1 H (25-34) pg MCHC 33.6 (32-36) g/dL RDW Std Deviation 55.0 H (36.4-46.3) fL RDW Coeff of Ryan 15.0 H (11.5-14.5) % Plt Count 363 (130-400) K/uL MPV 11.5 H (7.4-10.4) fL Immature Gran % (Auto) 0.1 % Neut % (Auto) 56.2 % Lymph % (Auto) 34.5 % Brule % (Auto) 8.5 % Eos % (Auto) 0.5 % Baso % (Auto) 0.2 % Immature Gran # (Auto) 0.01 (0.00-0.02) K/uL Neut # (Auto) 5.33 (1.4-6.5) K/uL Lymph # (Auto) 3.28 (1.2-3.4) K/uL Brule # (Auto) 0.81 H (0.11-0.59) K/uL Eos # (Auto) 0.05 (0-0.5) K/uL Baso # (Auto) 0.02 (0-0.2) K/uL PT (9.0-12.0) Seconds INR (0.9-1.1) Sodium 141 (136-145) mmol/L Potassium 3.8 (3.5-5.1) mmol/L Chloride 109 H (98-107) mmol/L Carbon Dioxide 24 (21-32) mmol/L Anion Gap 8.0 (3-11) BUN 12 (7-18) mg/dl Creatinine 0.96 (0.6-1.2) mg/dl Est Cr Clr Drug Dosing 50.6 ml/min Est GFR ( Amer) 62.9 Est GFR (Non-Af Amer) 54.3 BUN/Creatinine Ratio 12.3 (10-20) Glucose 104 H (70-99) mg/dl Calcium 8.7 (8.5-10.1) mg/dl Total Bilirubin 0.3 (0.2-1) mg/dl AST 17 (15-37) U/L ALT 20 (12-78) U/L Alkaline Phosphatase 70 (45-117) U/L Total Creatine Kinase 64 (26-192) U/L CK-MB (CK-2) < 1.0 (0.5-3.6) ng/ml CK/CKMB % Calc TNP Total Protein 7.2 (6.4-8.2) gm/dl Albumin 3.5 (3.4-5.0) gm/dl Globulin 3.7 (2.5-4.0) gm/dl Albumin/Globulin Ratio 1.0 (0.9-2) TSH 5.180 H (0.300-4.500) uIu/ml Free T4 1.10 (0.8-1.6) ng/dl Urine Color Yellow Urine Appearance Clear (Clear) Urine pH 7.0 (4.5-7.5) Ur Specific [place] 1.009 (1.000-1.030) Urine Protein Negative (Negative) Urine Glucose (UA) Negative (Negative) Urine Ketones Negative (Negative) Urine Blood Negative (Negative) Urine Nitrite Negative (Negative) Urine Bilirubin Negative (Negative) Urine Urobilinogen Negative (Negative) Ur Leukocyte Esterase Trace H (Negative) Urine WBC (Auto) 1-5 (0-5) /hpf Urine RBC (Auto) 0-4 (0-4) /hpf U Hyaline Cast (Auto) 1-5 (0-5) /lpf U Epithel Cells (Auto) >30 H (0-5) /lpf Urine Bacteria (Auto) Negative (Negative) 11/12/18 Range/Units 11:38 WBC (4.8-10.8) K/uL RBC (4.2-5.4) M/uL Hgb (12.0-16.0) g/dL Hct (37-47) % MCV (80-100) fL MCH (25-34) pg MCHC (32-36) g/dL RDW Std Deviation (36.4-46.3) fL RDW Coeff of Ryan (11.5-14.5) % Plt Count (130-400) K/uL MPV (7.4-10.4) fL Immature Gran % (Auto) % Neut % (Auto) % Lymph % (Auto) % Brule % (Auto) % Eos % (Auto) % Baso % (Auto) % Immature Gran # (Auto) (0.00-0.02) K/uL Neut # (Auto) (1.4-6.5) K/uL Lymph # (Auto) (1.2-3.4) K/uL Brule # (Auto) (0.11-0.59) K/uL Eos # (Auto) (0-0.5) K/uL Baso # (Auto) (0-0.2) K/uL PT 10.0 (9.0-12.0) Seconds INR 1.0 (0.9-1.1) Sodium (136-145) mmol/L Potassium (3.5-5.1) mmol/L Chloride (98-107) mmol/L Carbon Dioxide (21-32) mmol/L Anion Gap (3-11) BUN (7-18) mg/dl Creatinine (0.6-1.2) mg/dl Est Cr Clr Drug Dosing ml/min Est GFR ( Amer) Est GFR (Non-Af Amer) BUN/Creatinine Ratio (10-20) Glucose (70-99) mg/dl Calcium (8.5-10.1) mg/dl Total Bilirubin (0.2-1) mg/dl AST (15-37) U/L ALT (12-78) U/L Alkaline Phosphatase (45-117) U/L Total Creatine Kinase (26-192) U/L CK-MB (CK-2) (0.5-3.6) ng/ml CK/CKMB % Calc Total Protein (6.4-8.2) gm/dl Albumin (3.4-5.0) gm/dl Globulin (2.5-4.0) gm/dl Albumin/Globulin Ratio (0.9-2) TSH (0.300-4.500) uIu/ml Free T4 (0.8-1.6) ng/dl Urine Color Urine Appearance (Clear) Urine pH (4.5-7.5) Ur Specific [place] (1.000-1.030) Urine Protein (Negative) Urine Glucose (UA) (Negative) Urine Ketones (Negative) Urine Blood (Negative) Urine Nitrite (Negative) Urine Bilirubin (Negative) Urine Urobilinogen (Negative) Ur Leukocyte Esterase (Negative) Urine WBC (Auto) (0-5) /hpf Urine RBC (Auto) (0-4) /hpf U Hyaline Cast (Auto) (0-5) /lpf U Epithel Cells (Auto) (0-5) /lpf Urine Bacteria (Auto) (Negative) Imaging Data Radiologist's Impression: Radiology results as stated below per my review and the radiologist's interpretation: CT SCAN OF THE BRAIN WITHOUT IV CONTRAST CLINICAL HISTORY: Change in mental status. COMPARISON STUDY: CT of the brain dated 04/15/2012. TECHNIQUE: Unenhanced axial CT scan of the brain is performed from the vertex to the skull base. A dose lowering technique was utilized adhering to the principles of ALARA. The examination is modestly degraded by motion artifact. CT DOSE: 537.48 mGy.cm FINDINGS: Brain parenchyma: There are age-related involutional changes noting mild subcortical and periventricular microangiopathic change. There is no hemorrhage , mass effect, or evidence of acute territorial ischemia by CT criteria. Laura- white matter differentiation is preserved. No extra-axial fluid collection is seen. Ventricles, sulci, cisterns: Prominent secondary to involutional change. Intracranial vasculature: There is atherosclerotic calcification of the cavernous carotid and vertebral arteries. Calvarium: Unremarkable. Sinuses and mastoids: An impacted molar protrudes into the left maxillary antrum. The visualized paranasal sinuses are otherwise clear. The mastoid air cells are well pneumatized. Orbits: The bony orbits are grossly intact. IMPRESSION: There is no hemorrhage, mass effect, or evidence of acute territorial ischemia by CT criteria. Electronically signed by: Zeeshan Light M.D. 11/12/2018 7:13 AM XR chest 1V portable CLINICAL HISTORY: 83 years-old Female presenting with weakness. TECHNIQUE: Portable upright AP view of the chest was obtained. COMPARISON: 12/19/2013. FINDINGS: Atherosclerosis of the aortic arch. Cardiac silhouette enlarged. Pulmonary vascular prominence. Slight added density at the right lung base is likely vascular in etiology. No other focal opacity. No large effusion or pneumothorax. Osteopenia may be present. Degenerative changes of the spine and glenohumeral joints. IMPRESSION: 1. Cardiomegaly with mild volume overload. No quintin pulmonary edema. 2. Minimal added density at the right lung base is likely vascular in etiology or due to overlapping soft tissue. Electronically signed by: Ramos Alvarez M.D. 11/12/2018 6:42 AM ECG Data Attestation: I personally reviewed and interpreted this ECG as follows: Indication: altered mental status Rate (beats per minute): 90 Rhythm: normal sinus Findings: no ST depression and no ST elevation Blood Pressure Blood Pressure Findings: Elevated blood pressure Blood Pressure Disposition: Referred to patients primary care provider MDM Narrative This is an 83-year-old female who presents emergency department acutely confused. Per EMS report the patient woke up confused this morning and did not know where she was. Her is reportedly also confused. Upon arrival to the emergency department the patient does not know how she arrived here. She was recently placed on hydroxyurea. Her blood pressure was found to be grossly elevated therefore she was given metoprolol 5 mg x3. She was also given morphine for bilateral knee pain as well as Zofran. Due to the patient's hypertensive urgency I did discuss the case with the hospitalist service who agreed to admit the patient. Patient was in agreement with the treatment plan. Impression & Plan Altered mental status, Hypertensive urgency Critical Care Time I have personally spent greater than 30 minutes of critical care time in the direct management of this patient. This includes bedside care, interpretation of diagnostic studies, and testing, discussion with consultants, patient, and family members, and other required patient management activities. This 30 minutes is in excess of all separately billable procedures. Discharge Plan Visit Data *Final* Discharge Date/Time: 11/12/18 10:59 Chief Complaint: Confusion ED Provider: John Almaguer Discharge Problem: Altered mental status, Hypertensive urgency Patient Disposition: Admitted As Inpatient Discharge Instructions Interventions: ED Discharge Assessment Last Done: 11/12/18 10:59 The scribe's documentation has been prepared under my direction and personally reviewed by me in its entirety. I confirm that the note above accurately reflects all work, treatment, procedures, and medical decision making performed by me.
--- NOTE | 2018-11-12 16:40 | History & Physical Report ---
Date of Service November 12, 2018 Assessment & Plan (1) Hypertensive urgency: Unclear etiology. Reviewing office notes, she was on HTN meds in the past , but stopped ~2013 for low blood pressure. Last office visit in 08/2018, her BP was 130/75. Possiblye due to concern/anxiety about being in the hospital vs. possible allergic reaction. - BP returned to 140/60 with giving HCTZ, then up to 220/84. - Now 125/70 - Monitor BP and mental status (2) Polycythemia vera: With Joe mutation. Has been on hydroxyurea with Dr. Zazueta. Hgb was 14.6 on admission; stable from one a year ago. - Continue home med - Monitor hgb (3) Dementia: Per daughter, has severe dementia. I believe that her mental status is close to baseline. She can answer questions about pertinent history and how she is feeling, but was unable to name location (type or specific hospital) or year/ season. - Monitor mental status (4) DVT prophylaxis: Lovenox History of Present Illness Primary Care Provider: Og Nogueira MD 83yo F w/ hx of severe dementia who presents with possible allergic reaction. Per daughter, patient had UTI-type symptoms and was given cephalexin from an urgent care center. She took several days worth, then the daughter noted that her tongue was redder. She was sent to the ED, and in the ED, her blood pressure was noted to be >220/100. She was admitted for possible confusion as she could not tell the ED providers what was going on, and she was given metoprolol for the blood pressure. On my interview, she denies all ROS, including shortness of breath, chest pain, headache, dizziness, cough, dysuria, polyuria, or other symptoms. Allergies Allergy/AdvReac Type Severity Reaction Status Date / Time clonidine Allergy Intermediate RASH Verified 11/19/17 01:24 cyclobenzaprine Allergy Intermediate RASH Verified 11/19/17 01:24 diltiazem Allergy Intermediate RASH Verified 11/19/17 01:24 homatropine Allergy Intermediate SWELLING Verified 11/19/17 01:24 hydrocodone Allergy Intermediate SWELLING Verified 11/19/17 01:24 lisinopril Allergy Intermediate RASH Verified 11/19/17 01:24 nitrofurantoin Allergy Intermediate RASH Verified 11/19/17 01:24 Penicillins Allergy Intermediate HIVES/RASH Verified 11/19/17 01:24 pregabalin Allergy Intermediate tingly Verified 11/19/17 01:24 tongue, numb lips quinapril Allergy Intermediate RASH Verified 11/19/17 01:24 Quinolones Allergy Intermediate SWELLING Verified 11/19/17 01:24 Bactrim Allergy Unknown GMG LIST Verified 11/19/17 01:24 levofloxacin Allergy Unknown GMG LIST Verified 11/19/17 01:24 amitriptyline AdvReac Mild OPPOSITE Verified 11/19/17 01:24 EFFECTS ANTICHOLINERGIC Allergy Intermediate SWELLING Uncoded 10/28/09 03:21 Home Medications Home Medications Medication Instructions Recorded Confirmed Type Ibuprofen Tab (ADVIL) 200 - 600 mg PO Q8 PRN #0 tab 04/15/12 History HYDROXYUREA (HYDREA) 500 mg PO DAILY #0 cap 12/19/13 History Hydroxyurea (Hydrea Cap) 1,000 mg PO DAILY #0 cap 10/26/15 History GABAPENTIN (NEURONTIN) 100 mg PO BID #0 cap 11/19/17 History Tamsulosin HCl 0.4 mg PO QAM 7 Days #7 cap 11/19/17 Rx Past Med/Surg History Medical History UTI (urinary tract infection) (Resolved) Diverticulitis (Resolved) HTN (hypertension) (Chronic) Hydronephrosis with obstructing calculus (Resolved) Social History Current Living Situation: Spouse Feels Safe at Home: Yes Smoking Status: Never smoker Hx Alcohol Use: No Hx Substance Use: No Beliefs That Will Affect Care: None Preferred Language: Kiswahili Communication Ability: Effective Department Assistant Required: No Review of Systems All systems reviewed & are unremarkable except as noted in HPI & below Physical Exam 2 Vital Signs (Past 24 Hours): Last Vital Signs Temp 36.5 C 11/12/18 15:56 Pulse 73 11/12/18 15:56 Resp 18 11/12/18 15:56 BP 127/70 11/12/18 15:56 Pulse Ox 95 11/12/18 15:56 Constitutional: WD/WN, vitals as above Eyes: EOM intact bilaterally; no conjunctival abnormality ENMT: external ear and nose normal, oropharynx normal Neck: trachea midline, no thyromegaly normal visual inspection Respiratory: normal respiratory effort, lungs clear to auscultation no respiratory distress Cardiovascular: RRR, no murmur, no edema Gastrointestinal (Abdomen): Inspection/Auscultation: abdomen normal to inspection; abdomen not distended Musculoskeletal: no cyanosis or clubbing, extremities motor strength 5/5 Skin: no rashes, warm and dry Neurologic: moves all extremities and awake Psychiatric: Orientation: alert, oriented to person, cooperative and + guarded ; + not oriented to place and + not oriented to time
[2018-11-12] MEDS: SODIUM CHLORIDE 0.9% 1000ML 1,000 ML IV SCH (18:23)
[2018-11-12] MEDS ORDERED: ENOXAPARIN INJ 40 MG/0.4 ML SYR SQ SCH (21:00)
[2018-11-13] MEDS: SODIUM CHLORIDE 0.9% 1000ML 1,000 ML IV SCH (05:48)
[2018-11-13 07:22] LABS: Hematocrit (blood only) 41.3 % (37-47); Hemoglobin 13.5 g/dL (12.0-16.0); Mean Corpuscular Hgb Conc 32.7 g/dL (32-36); Mean Corpuscular Volume 104.6 fL (80-100); Mean Platelet Volume 11.3 fL (7.4-10.4); Platelet Count 301 K/uL (130-400); RDW Coefficient of Variation 15.3 % (11.5-14.5); RDW Standard Deviation 59.4 fL (36.4-46.3); Red Blood Count 3.95 M/uL (4.2-5.4); White Blood Count 7.26 K/uL (4.8-10.8)
[2018-11-13 08:14] LABS: BUN Creatinine Ratio 10.4 (10-20); Calcium 8.5 mg/dl (8.5-10.1); Creatinine Clr Calc Pharmacy 50.9 ml/min; Est GFR (African American) 65.4; Est GFR (Non-African American) 56.4; Magnesium 2.2 mg/dl (1.8-2.4)
[2018-11-13 08:22] LABS: Potassium 4.5 mmol/L (3.5-5.1)
[2018-11-13] MEDS ORDERED: HYDROXYUREA 500 MG CAP PO SCH (09:00)
[2018-11-13 11:51] VITALS: BP 193/61; PULSE 94; TEMP 97.5; O2SAT 95
--- NOTE | 2018-11-13 17:13 | Discharge Summary ---
Date of Service November 13, 2018 Admission HPI Per Admitting Provider 83yo F w/ hx of severe dementia who presents with possible allergic reaction. Per daughter, patient had UTI-type symptoms and was given cephalexin from an urgent care center. She took several days worth, then the daughter noted that her tongue was redder. She was sent to the ED, and in the ED, her blood pressure was noted to be >220/100. She was admitted for possible confusion as she could not tell the ED providers what was going on, and she was given metoprolol for the blood pressure. On my interview, she denies all ROS, including shortness of breath, chest pain, headache, dizziness, cough, dysuria, polyuria, or other symptoms. Principal Diagnosis Hypertension Discharge Exam Constitutional WD/WN, vitals as above Eyes EOM intact bilaterally; no conjunctival abnormality ENMT external ear and nose normal, oropharynx normal Neck trachea midline, no thyromegaly normal visual inspection Respiratory normal respiratory effort, lungs clear to auscultation no respiratory distress Cardiovascular RRR, no murmur, no edema Gastrointestinal (Abdomen) Inspection/Auscultation: abdomen normal to inspection; abdomen not distended Musculoskeletal no cyanosis or clubbing, extremities motor strength 5/5 Skin no rashes, warm and dry Neurologic moves all extremities and awake Psychiatric Orientation: alert, oriented to person, cooperative and + guarded; + not oriented to place and + not oriented to time Discharge Data Allergies Allergy/AdvReac Type Severity Reaction Status Date / Time clonidine Allergy Intermediate RASH Verified 11/19/17 01:24 cyclobenzaprine Allergy Intermediate RASH Verified 11/19/17 01:24 diltiazem Allergy Intermediate RASH Verified 11/19/17 01:24 homatropine Allergy Intermediate SWELLING Verified 11/19/17 01:24 hydrocodone Allergy Intermediate SWELLING Verified 11/19/17 01:24 lisinopril Allergy Intermediate RASH Verified 11/19/17 01:24 nitrofurantoin Allergy Intermediate RASH Verified 11/19/17 01:24 Penicillins Allergy Intermediate HIVES/RASH Verified 11/19/17 01:24 pregabalin Allergy Intermediate tingly Verified 11/19/17 01:24 tongue, numb lips quinapril Allergy Intermediate RASH Verified 11/19/17 01:24 Quinolones Allergy Intermediate SWELLING Verified 11/19/17 01:24 Bactrim Allergy Unknown GMG LIST Verified 11/19/17 01:24 levofloxacin Allergy Unknown GMG LIST Verified 11/19/17 01:24 amitriptyline AdvReac Mild OPPOSITE Verified 11/19/17 01:24 EFFECTS ANTICHOLINERGIC Allergy Intermediate SWELLING Uncoded 10/28/09 03:21 Consultations 11/12/18 08:51 ED Decision to Admit Stat 11/12/18 11:16 Consult Case Management - Discharge Planning Routine Ordered Studies 11/12/18 06:31 CT head/brain wo con Stat 11/12/18 08:48 CT angio head w con Stat CT angio neck with con Stat Hospital Course (1) Hypertensive urgency: Unclear etiology. Reviewing office notes, she was on HTN meds in the past , but stopped ~2013 for low blood pressure. Last office visit in 08/2018, her BP was 130/75. I think it was possibly due to concern/anxiety about being in the hospital vs. possible allergic reaction. She would have episodes of BP up to 180/80, but would spontaneously resolve in 15-20 minutes when the patient calmed down. I held any further HTN med as I was worried that she would have another episode of hypotension when she was calmer. - Follow up with PCP in 1 week for BP check (2) Allergic reaction: Daughter was worried about an allergic reaction to her cephalexin which is why she was originally sent in. In the ED, her speaking was a bit slurred, but this resolved by 11/12, and she was able to speak, eat, and drink without issue. - Avoid cephalosporins in the future (3) Polycythemia vera: With Joe mutation. Has been on hydroxyurea with Dr. Zazueta. Hgb was 14.6 on admission; stable from one a year ago. - Continued home med (4) Dementia: Per daughter, has severe dementia. I believe that her mental status is close to baseline. She can answer questions about pertinent history and how she is feeling, but was unable to name location (type or specific hospital) or year/ season. - Monitor mental status Total Time Total Time Spent Total Time Spent (In Minutes): 45 Total Time Includes: Examination of the Patient, Discharge Planning and Medication Reconciliation Discharge Plan Discharge Items Patient Disposition: Home - Self-Care Reason For Visit: POSSIBLE ALTERED MENTAL STATUS Discharge Diagnosis: Possible allergic reaction; high blood pressure Condition: Good Discharge Goals: Diagnostic testing, Improve disease control and Improve function Activity: Resume your previous activity Non-emergency contact: Primary Care Provider Call non-emergency contact if: your symptoms worsen, your pain is unusual for you and your temperature is above 100.5 Follow-up/Referrals: Og Nogueira MD [Primary Care Provider] - 11/20/18 11:40 am (Please see Dr. Jansen on November 20 at 11:40 am. *If you need to change or cancel this appointment, call the office at .) Diet: Regular Addtl Provider Instructions: Ms. Moran was admitted for high blood pressure in the Emergency Department. Her blood pressure was >220/100. She was given one dose of metoprolol and hydrochlorothiazide 25mg by mouth one time. Her blood pressure came down to 125/65. She was mildly upset about her ( being concerned that they were getting a divorce), and as she calmed down, her blood pressure came down. The morning of discharge, her blood pressure was again elevated, but only to 170/80. It came down on its own after she woke up and was in better spirits. I think that her blood pressure may have large swings when she gets upset which may make people think she has hypertension. But when she is calm, her blood pressure is in a good range. Because we didn't want to add or change her medications, I am leaving her off any blood pressure medication because I would not want it to go too low. Please follow up with her PCP in 1-2 weeks for a blood pressure check. In regards to the allergic reaction, her tongue was normal and she had no problems talking or eating on discharge. You will probably want to avoid cephalexin (or other cephalosporin antibiotics) in the future to prevent further reactions. Prescriptions: Continue Ibuprofen Tab (ADVIL) 200 MG tablet 200 - 600 mg PO Q8 PRN (Reason: Pain) Qty: 0 RF: 0 HYDROXYUREA (HYDREA) 500 MG capsule 500 mg PO DAILY Qty: 0 RF: 0 Hydroxyurea (Hydrea Cap) 500 MG capsule 1,000 mg PO DAILY Qty: 0 RF: 0 GABAPENTIN (NEURONTIN) 100 MG capsule 100 mg PO BID Qty: 0 RF: 0 Tamsulosin HCl 0.4 MG capsule 0.4 mg PO QAM 7 Days Qty: 7 RF: 0 Stand-Alone Forms: [facility] Discharge Orders: Discharge Order (Routine); Ordered 11/13/18 Ordered By: Td Sims Admission Data Admit Date/Time: 11/12/18 10:12 Attending Provider: Td Sims Admit Provider: Td Sims Primary Care Provider: Og Nogueira V. Other Providers: Brenden Bravo Service: Telemetry Medical Other Interventions: Discharge Summary Assessment (RN) Last Done: 11/13/18 11:15 DC Date/Time DO NOT enter until pt leaves facility: 11/13/18 12:52
== END 2018-11-13 12:52 | disposition home or self-care (01) ==
LOC: 2N 06:21 → ED 06:21 → 2N 10:59